=== PATIENT | female | born 1985 | race Caucasian/White ===

== ENCOUNTER → 2016-02-14 | Outpatient (CLI) | payer BC ==
--- NOTE | 2016-02-14 18:49 | REP ---
OBSTETRIC SONOGRAPHY: HISTORY: Supervision of , for anatomy. FINDINGS: Scanning through the gravid uterus demonstrates a viable single intrauterine gestation in a variable lie. motion is observed and heart rate is recorded at 153 beats per minute. A posterior right lateral placenta is seen, grade 1, without evidence of previa. Amniotic fluid is subjectively normal. Closed cervical length is 3.2 cm measured transabdominally. There is a 2.1 cm left paraovarian cyst noted. There has been appropriate interval growth. A 10.1 x 9.0 x 8.0 cm fibroid is seen at the level of and obscuring the internal cervical os. No anomaly is seen. Left and right ventricular outflow tract views are less than optimally seen due to position. The following additional anatomic structures are identified and felt to be sonographically unremarkable: cranium, choroid plexus, cavum, cerebellum and posterior fossa, face in profile, lungs, four chamber heart, diaphragm, left-sided stomach, abdominal wall cord insertion, three vessel umbilical cord, kidneys and bladder, spine, upper and lower extremities. BIOMETRY CHART: BPD 4.7 cm = 20 weeks 1 days HC 18.0 cm = 20 weeks 3 days AC 15.1 cm = 20 weeks 2 days FL 3.3 cm = 20 weeks 2 days HL 3.3 cm = 20 weeks 6 days HC/AC ratio normal 1.19. Cephalic index normal 0.71. Estimated weight 349 grams 0 pounds 12 ounces, 56th percentile for 20 weeks 1 day. IMPRESSION: Viable single intrauterine gestation at 20 weeks 3 days by today's composite criteria. Expected gestational age estimate based on prior sonography is 20 weeks 0 days, KENDALL by prior sonography is July 03, 2016. There is a large lower uterine segment fibroid 10.1 cm in greatest diameter covering the internal cervical os. Left and right ventricular outflow tract views are less than optimally seen due to position. Signed by Roberto Jang MD 02/14/2016 07:20 P
== END ==
LOC: M RAD 09:36
PROVIDERS: ATTEND Advanced Practice Midwife
DX: Z34.82 Encounter for supervision of other normal pregnancy, second trimester (principal)

== ENCOUNTER → 2016-03-06 | Outpatient (CLI) | payer BC ==
--- NOTE | 2016-03-06 11:09 | REP ---
OBSTETRIC SONOGRAPHY: HISTORY: Supervision of , followup anatomy. FINDINGS: Scanning demonstrates a viable single intrauterine gestation in a cephalic lie. motion is observed and heart rate is recorder 150 beats per minute. A posterior grade 0 placenta is seen without evidence of previa or abruption. Amniotic fluid is subjectively normal. Closed cervical length is measured at 5.4 cm view transabdominally. No extrauterine abnormalities observed. There has been appropriate interval growth. There is evidence of nuchal cord at this juncture. There is a large anterior lower uterine segment myoma measuring 9.2 x 8.8 x 9.3 cm just to the left of midline. No anomaly is seen. The following anatomic structures are identified today and felt to be sonographically unremarkable: cranium, choroid plexus, cavum, cerebellum and posterior fossa, face and profile, lungs, four-chamber heart with left and right ventricular outflow tract views, diaphragm, left-sided stomach, abdominal wall cord insertion, three-vessel umbilical cord, kidneys and bladder, spine, upper and lower extremities. Biometry Chart: BPD 5.4 cm = 22 weeks 3 days HC 20.5 cm = 22 weeks 4 days AC 18.7 cm = 23 weeks 3 days FL 4.0 cm = 22 weeks 6 days HL 3.8 cm = 23 weeks 4 days CD 2.3 cm = 21 weeks 3 days HC/AC ratio normal 1.10. Cephalic index normal 0.72. Estimated weight 562 grams, 1 pound 3 ounces, 45th percentile for 23 weeks 1 day. IMPRESSION: Viable single intrauterine gestation at 22 weeks 5 days by today's composite sonographic criteria. Expected gestational age estimate based on prior sonography is 23 weeks 0 days. KENDALL by prior sonography July 03, 2016. Nuchal cord is seen. There is a 9.3 cm fibroid to the left of midline in the lower uterine segment. anatomic survey is felt to be complete. Signed by Roberto Jang MD 03/06/2016 01:18 P
== END ==
LOC: M RAD 09:31
PROVIDERS: ATTEND Advanced Practice Midwife
DX: Z34.82 Encounter for supervision of other normal pregnancy, second trimester (principal)

== ENCOUNTER → 2016-03-27 | Outpatient (CLI) | payer BC ==
[2016-03-27 09:46] LABS: MEAN CORPUSCULAR HEMOGLOBIN 30.9 pg (27.0-33.0); MEAN CORPUSCULAR HGB CONC 34.3 g/dl (32.0-36.5); MEAN CORPUSCULAR VOLUME 89.9 fl (80.0-96.0); RED CELL DISTRIBUTION WIDTH 13.3 % (11.5-14.5); WHITE BLOOD COUNT 8.5 K/mm3 (4.0-10.0)
== END ==
LOC: M LAB 07:45
PROVIDERS: ATTEND Advanced Practice Midwife
DX: Z34.82 Encounter for supervision of other normal pregnancy, second trimester (principal)

== ENCOUNTER → 2016-04-02 | Outpatient (CLI) | payer BC | LOC: M LAB 08:03 | PROVIDERS: ATTEND Advanced Practice Midwife | DX: Z34.82 Encounter for supervision of other normal pregnancy, second trimester (principal) ==

== ENCOUNTER → 2016-06-04 | Outpatient (REF) | payer BC | LOC: M LAB REF 13:36 | PROVIDERS: ATTEND Advanced Practice Midwife | DX: Z34.83 Encounter for supervision of other normal pregnancy, third trimester (principal) ==

== ENCOUNTER → 2016-06-06 | Outpatient (CLI) | payer BC ==
--- NOTE | 2016-06-07 05:08 | REP ---
Clinical: Growth discrepancy. Comparison: 03/06/2016. Findings: Examination demonstrates a single live intrauterine in Cephalic presentation. motion is identified by technologist. Placenta is noted right laterally and grade III without evidence for placenta previa or abruption. 12.2 cm anterior left intramural fibroid extends to the lower uterine segment adjacent to the head. Amniotic fluid volume is normal. Cervix appears closed. No evidence for nuchal cord. Gestational age by LMP 36 weeks 2 day with KENDALL 07/02/2016. Gestational age by current measurements 36 weeks 0 days with KENDALL 07/04/2016. FHR equals 168 beats per minute. BPD 8.4 cm 34w0d HC 31.8 cm 35w6d AC 33.7 cm 37w5d FL 7.0 cm 36w1d HL 6.3 cm 36w2d HC/AC ratio 0.94 Estimated weight 2989 grams (57th percentile). Amniotic fluid index equals 13.0 (7.6 - 24.8) Umbilical cord SD ratio equals 2.26 (1.88 - 2.88). Impression: 1. Large 12 cm anterior fibroid extends into the lower uterine segment at the level of the head. 2. Single live intrauterine in cephalic presentation demonstrating appropriate interval growth. Estimated weight normal. Amniotic fluid index normal. Signed by Freddy Mahoney MD 06/07/2016 04:59 A
== END ==
LOC: M RAD 09:10
PROVIDERS: ATTEND Advanced Practice Midwife
DX: O24.410 Gestational diabetes mellitus in pregnancy, diet controlled (principal); Z3A.00 Weeks of gestation of pregnancy not specified

== ENCOUNTER 2016-06-27 07:37 | Inpatient (IN) | payer BC ==
[2016-06-27] VITALS (13 sets, daily range): BP systolic 115–159; BP diastolic 57–92
[~2016-06-27] VITALS: Ht 170.2 cm; Wt 88.0 kg
[2016-06-27] MEDS ORDERED: PRE-TAB3 PO (08:04)
[2016-06-27] MEDS ORDERED: ASPI1TAB24 PO (08:04)
[2016-06-27 09:35] LABS: MEAN CORPUSCULAR HEMOGLOBIN 31.6 pg (27.0-33.0); MEAN CORPUSCULAR HGB CONC 34.4 g/dl (32.0-36.5); MEAN CORPUSCULAR VOLUME 91.7 fl (80.0-96.0); RED CELL DISTRIBUTION WIDTH 14.5 % (11.5-14.5); WHITE BLOOD COUNT 6.6 K/mm3 (4.0-10.0)
[2016-06-27] MEDS: miSOPROStol 50 MCG 1/2 TAB (S0191) PO SCH ×2 (10:08→14:12)
[2016-06-27] MEDS ORDERED: OXYTOCIN DRIP 30 UNITS in APPROPRIATE DILUENT 1 EA IV SCH (20:00)
[2016-06-27] MEDS: LR 1,000 ML IV SCH (20:09)
--- NOTE | 2016-06-27 22:08 | HPE ---
DATE OF ADMISSION: 06/27/2016 REASON FOR ADMISSION: Induction of labor for gestational diabetes. HISTORY OF PRESENT ILLNESS: Mrs. Spann is a 31-year-old, 3, para 0, who presents at 39 weeks 2 days estimated gestational age by her last menstrual period and confirmed by a first trimester ultrasound for induction of labor secondary to gestational diabetes. Her course is remarkable for A1 gestational diabetes that has been well controlled on diet. Her course is also remarkable for an approximately 10 cm anterior lower uterine segment fibroid. course has otherwise been unremarkable. She initiated care in her first trimester and it has been appropriate throughout. PAST MEDICAL HISTORY: History of depression. PAST SURGICAL HISTORY: She has had tonsillectomy. PAST OBSTETRICAL HISTORY: She is a 3, para 0, she has had two first trimester miscarriages. MEDICATIONS: Includes: - vitamins ALLERGIES: She has no known drug allergies. SOCIAL HISTORY: She lives at home with her . Denies any alcohol, tobacco, or drug use during her . PHYSICAL EXAMINATION: Her vital signs are stable. She is afebrile. She has a category 1 heart rate tracing. Her general appearance is well-appearing, in no acute distress. Her lungs are clear to auscultation bilaterally. Cardiovascular: Heart regular rate and rhythm. Her abdomen is gravid, nontender. Estimated weight (EFW) 3300 grams. Cervical exam: She was 1 cm dilated, 50% effaced, -2 station. LABORATORY DATA: Her labs: Her blood type is B positive, antibody screen is negative, Rubella is immune, RPR is nonreactive, hepatitis surface antigen is negative, HIV is negative, hepatitis C is nonreactive, chlamydia and gonorrhea screens are negative. She had an elevated 1-hour Glucola and also abnormal glucose tolerance test. She is group B Streptococcus (GBS) negative. ASSESSMENT: 1. Mrs. Spann is a 31-year-old, 3, para 0, who presents at 39 weeks 2 days estimated gestational age for induction of labor. 2. Gestational diabetes. 3. Reassuring status. PLAN: 1. Admit to labor and delivery, complete blood count (CBC), rapid plasma reagin (RPR), type and screen. 2. Patient has been thoroughly counseled in regards to induction of labor. I have discussed medication as well as the procedures performed for induction of labor. I have also consented her for emergency surgery, blood products, and anesthesia, and she desires to proceed with admission. 3. Will initiate her induction of labor with 50 mcg of oral misoprostol.
[2016-06-28] VITALS (35 sets, daily range): BP systolic 99–170; BP diastolic 54–97
[2016-06-28] MEDS ORDERED: FENTANYL 2MCG/ML ROPIVACAINE 0.2% IN 0.9% NACL 200ML IVBAG As Ordered ONE (00:15)
[2016-06-28] MEDS ORDERED: NALOXONE INJ 0.4 MG/1 ML VIAL (J2310) IV PRN (01:10)
[2016-06-28] MEDS ORDERED: ePHEDrine SULFATE 25 MG/5 ML(5MG/ML) SYRINGE IV PRN (01:10)
[2016-06-28] MEDS ORDERED: EPIDURAL COMMENT XX SCH (01:10)
[2016-06-28] MEDS ORDERED: EPIDURAL/PCA KEYS XX PRN (01:10)
[2016-06-28] MEDS ORDERED: FENTANYL/ROPIVACAINE/NACL BAG 200 ML EPIDURAL SCH (01:10)
[2016-06-28] MEDS ORDERED: LACTATED RINGER'S 1000 ML IV PRN (01:10)
[2016-06-28] MEDS ORDERED: ONDANSETRON 4MG/2ML VIAL (J2405) IV PRN ×2 (01:10→14:00)
[2016-06-28] MEDS ORDERED: diphenhydrAMINE INJ 50MG/ML VIAL (J1200) IV PRN (01:10)
[2016-06-28] MEDS ORDERED: REFRIGERATOR IV KEYS XX PRN (01:10)
[2016-06-28] MEDS: LR 1,000 ML IV SCH (11:37)
[2016-06-28] MEDS ORDERED: DOCUSATE SODIUM 100 MG CAP PO PRN (14:00)
[2016-06-28] MEDS ORDERED: METHYLERGONOVINE MALEATE 0.2 MG TAB PO PRN (14:00)
[2016-06-28] MEDS ORDERED: OXYTOCIN DRIP 30 UNITS in APPROPRIATE DILUENT 1 EA IV ONE (14:00)
[2016-06-28] MEDS ORDERED: DIBUCAINE 1% OINTMENT 30GM TOP PRN (14:00)
[2016-06-28] MEDS ORDERED: LIDOCAINE 1% MDV INJ 50 ML VIAL INFIL ONE (14:00)
[2016-06-28] MEDS ORDERED: MEASLES,MUMPS,RUBELLA VACCINE INJ (MMR-II) (90707) SC SCH (14:00)
[2016-06-28] MEDS ORDERED: RHOGAM 300 MCG (1500 IU) INJ (J2790) IM SCH (14:00)
[2016-06-28] MEDS ORDERED: ACETAMINOPHEN 500 MG TAB PO PRN (14:00)
[2016-06-28] MEDS: IBUPROFEN 800 MG TAB PO PRN (15:38)
--- NOTE | 2016-06-28 21:41 | DN ---
DATE OF DELIVERY: 06/28/2016 PREDELIVERY DIAGNOSIS: 39 weeks. Gestational diabetes. POSTDELIVERY DIAGNOSIS: Delivered. PROCEDURE: Spontaneous vaginal delivery. SALES ORDER SPECIALIST: Maxim Stovall MD ANESTHESIA: Epidural ESTIMATED BLOOD LOSS: 300 ml FINDINGS: 3190 gram female , Apgars 9 and 9. DELIVERY SUMMARY: After 3 hour second stage, the patient had spontaneous delivery of a 3190 gram female, Apgars 9 and 9 from the left occiput posterior position. There was no nuchal cord. The shoulders delivered spontaneously with ease. The infant cried spontaneously and was handed to the mother. The cord was doubly clamped and cut. Placenta delivered spontaneously and appeared to be intact. The patient received IV pitocin immediately after delivery of the placenta. A second degree perineal laceration was repaired with #2-0 chromic in the usual fashion. Sponge and needle counts were correct.
[2016-06-29 06:07] VITALS: BP 125/73
[2016-06-29] MEDS: IBUPROFEN 800 MG TAB PO PRN ×3 (06:22→21:17)
[2016-06-29] MEDS: PRENATAL VITAMIN TAB PO SCH (07:47)
[2016-06-29] MEDS ORDERED: ADACEL/BOOSTRIX VACCINE (DIPHTH/PERTUSS/ACELL/TETANUS)0.5ML SYR (90715) IM ONE (09:00)
[2016-06-29 18:00] VITALS: BP 149/66
[2016-06-30 05:49] VITALS: BP 125/73
[2016-06-30] MEDS: PRENATAL VITAMIN TAB PO SCH (08:04)
[2016-06-30] MEDS: IBUPROFEN 800 MG TAB PO PRN (08:05)
[2016-06-30] MEDS ORDERED: PRE-TAB3 PO (08:36)
[2016-06-30] MEDS ORDERED: TYLE325T5 PO (08:38)
[2016-06-30] MEDS ORDERED: MOTR200T44 PO (08:39)
== END 2016-06-30 12:00 | disposition home or self-care (01) | DRG 560 ==
LOC: M LDI 07:37 → M ED INP 13:44 → M LDI 13:48 → M OBS 06-28 15:07
PROVIDERS: ADMIT Obstetrics & Gynecology; ATTEND Obstetrics & Gynecology
PROC: 3E0DXGC Introduction of Other Therapeutic Substance into Mouth and Pharynx, External Approach (ICD-10-PCS; 2016-06-27)
PROC: 10E0XZZ Delivery of Products of Conception, External Approach (ICD-10-PCS; principal; 2016-06-28)
PROC: 0KQM0ZZ Repair Perineum Muscle, Open Approach (ICD-10-PCS; 2016-06-28)
PROC: 10907ZC Drainage of Amniotic Fluid, Therapeutic from Products of Conception, Via Natural or Artificial Opening (ICD-10-PCS; 2016-06-28)
DX: O24.420 Gestational diabetes mellitus in childbirth, diet controlled (principal); D25.9 Leiomyoma of uterus, unspecified; O34.13 Maternal care for benign tumor of corpus uteri, third trimester; Z37.0 Single live birth; Z3A.39 39 weeks gestation of pregnancy; Z79.899 Other long term (current) drug therapy; O70.1 Second degree perineal laceration during delivery

== ENCOUNTER → 2016-07-09 | Outpatient (REF) | payer BC ==
[~2016-07-09] MED LIST: ASPI1TAB24 PO; MOTR200T44 PO; PRE-TAB3 PO; TYLE325T5 PO
== END ==
LOC: M LAB REF 12:08
PROVIDERS: ATTEND Physician Assistant
DX: J02.9 Acute pharyngitis, unspecified (principal)

== ENCOUNTER 2016-09-16 22:45 | Emergency (ER) | payer BC ==
[~2016-09-16] VITALS: Ht 170.2 cm; Wt 84.0 kg
[~2016-09-16 22:45] MED LIST changes: +ASPI-161 PO; -ASPI1TAB24 PO
[2016-09-16 22:46] VITALS: BP 165/106
[2016-09-16] MEDS ORDERED: percocet PO (22:56)
[2016-09-17] MEDS ORDERED: MORPHINE 10 MG/ML 1ML VIAL IM ONE (02:15)
== END 2016-09-17 02:18 | disposition home or self-care (01) ==
LOC: M ED 22:45
DX: K08.89 Other specified disorders of teeth and supporting structures (principal)

== ENCOUNTER → 2017-01-29 | Outpatient (REF) | payer BC, SELFPAY ==
[~2017-01-29] MED LIST changes: +percocet PO
== END ==
LOC: M LAB REF 13:47
PROVIDERS: ATTEND Physician Assistant
DX: J02.9 Acute pharyngitis, unspecified (principal)

== ENCOUNTER → 2018-01-16 | Outpatient (CLI) | payer BC ==
[2018-01-16 17:23] LABS: HCG, SERUM QUANTITATIVE 2 MIU/ML
== END ==
LOC: M LAB 16:44
DX: N91.2 Amenorrhea, unspecified (principal)
CPT/HCPCS: 84702

== ENCOUNTER → 2018-01-18 | Outpatient (CLI) | payer BC, OTHER ==
[2018-01-18 14:23] LABS: HCG, SERUM QUANTITATIVE < 1.0 MIU/ML
== END ==
LOC: M SMT 11-11 09:40
DX: N91.2 Amenorrhea, unspecified (principal)
CPT/HCPCS: 84702

== ENCOUNTER → 2018-06-05 | Outpatient (REF) | payer BC ==
[2018-06-07 15:08] LABS: HPV HYBRID CAPTURE II Negative (Negative)
== END ==
LOC: M LAB REF 17:47
PROVIDERS: ATTEND Obstetrics & Gynecology
DX: Z12.4 Encounter for screening for malignant neoplasm of cervix (principal)
CPT/HCPCS: 87624; G0123

== ENCOUNTER → 2018-06-06 | Outpatient (CLI) | payer BC ==
--- NOTE | 2018-06-07 07:44 | REP ---
NON-OB PELVIC ULTRASOUND: HISTORY: Uterine leiomyoma. The uterus measures 12 cm in transverse x 11.2 cm in AP x 16.4 cm in cephalocaudal dimensions. The endometrium measures 5.6 cm. The uterus is enlarged and heterogeneous and echogenicity. Multiple fibroids are present. The largest on the right measures 7.2 cm in maximum dimension. The largest on the left measures 6.4 cm in maximum dimension. The right ovary measures 4.1 x 1.8 x 4.3 cm. The left ovary measures 3.6 x 1.4 x 4.2 cm. There is no fluid in the cul-de-sac. There are no filling defects in the urinary bladder. IMPRESSION: Enlarged fibroid uterus. Electronically Signed by Maxim Gregory MD 06/07/2018 07:59 A
== END ==
LOC: M RAD 17:13
PROVIDERS: ATTEND Obstetrics & Gynecology
DX: D25.2 Subserosal leiomyoma of uterus (principal)

== ENCOUNTER → 2018-07-30 | Outpatient (CLI) | payer BC | LOC: M LAB 08:06 | PROVIDERS: ATTEND Obstetrics & Gynecology | DX: N92.0 Excessive and frequent menstruation with regular cycle (principal) ==

== ENCOUNTER → 2018-08-06 | Outpatient (CLI) | payer BC | LOC: M WUC 17:39 | PROVIDERS: ATTEND Obstetrics & Gynecology | DX: Z32.01 Encounter for pregnancy test, result positive (principal) ==

== ENCOUNTER → 2018-08-08 | Outpatient (CLI) | payer BC | LOC: M LAB 07:58 | PROVIDERS: ATTEND Obstetrics & Gynecology | DX: Z32.01 Encounter for pregnancy test, result positive (principal); Z3A.00 Weeks of gestation of pregnancy not specified ==

== ENCOUNTER → 2018-10-17 | Outpatient (REF) | payer BC ==
[~2018-10-17] MED LIST changes: +ACET-897 PO; +IBUP200C28 PO; +MULTTAB20 PO
== END ==
LOC: M LAB REF 19:24
PROVIDERS: ATTEND Physician Assistant Medical
DX: R50.9 Fever, unspecified (principal)

== ENCOUNTER → 2018-10-17 | Outpatient (CLI) | payer BC ==
--- NOTE | 2018-10-17 15:08 | REP ---
Clinical: Fever . Comparison: None . Technique: PA and lateral. Findings: The mediastinum and cardiac silhouette are normal. The lung armstrong are clear and without acute consolidation, effusion, or pneumothorax. The skeletal structures are intact and normal. Impression: 1. No acute cardiopulmonary process. Electronically Signed by Freddy Mahoney MD 10/17/2018 03:00 P
== END ==
LOC: M ADAMS 14:43
PROVIDERS: ATTEND Physician Assistant Medical
DX: R50.9 Fever, unspecified (principal)

== ENCOUNTER → 2018-10-17 | Outpatient (REF) | payer BC ==
[2018-10-17 20:49] LABS: HEMATOCRIT 35.9 % (36.0-47.0); MEAN CORPUSCULAR HEMOGLOBIN 29.7 pg (27.0-33.0); MEAN CORPUSCULAR HGB CONC 33.4 g/dl (32.0-36.5); MEAN CORPUSCULAR VOLUME 88.9 fl (80.0-96.0); PLATELET COUNT, AUTOMATED 163 10^3/uL (150-450); RED BLOOD COUNT 4.04 10^6/uL (4.00-5.40)
[2018-10-17 21:34] LABS: WHITE BLOOD COUNT 1.3 10^3/uL (4.0-10.0)
[2018-10-17 21:45] LABS: ATYPICAL LYMPH 1 % (0-5); BASOPHILS 2 % (0-1); LYMPHOCYTES 41 % (16-44); MONOCYTES 8 % (0-5); NEUTROPHILS 24 % (28-66); PLATELET ESTIMATE NORMAL (NORMAL)
== END ==
LOC: M LABDRWAD 19:15
PROVIDERS: ATTEND Physician Assistant Medical
DX: R50.9 Fever, unspecified (principal)

== ENCOUNTER 2018-10-18 10:30 | Inpatient (IN) | payer BC ==
[~2018-10-18] VITALS: Ht 170.2 cm; Wt 84.6 kg
[~2018-10-18 10:30] MED LIST changes: -ACET-897 PO; -IBUP200C28 PO; +MAALOX 30 ML SUSP *UDC PO PRN; -MULTTAB20 PO
[2018-10-18 11:19] LABS: HEMATOCRIT 38.6 % (36.0-47.0); HEMOGLOBIN 12.9 g/dl (12.0-15.5); MEAN CORPUSCULAR HEMOGLOBIN 29.2 pg (27.0-33.0); MEAN CORPUSCULAR HGB CONC 33.4 g/dl (32.0-36.5); MEAN CORPUSCULAR VOLUME 87.3 fl (80.0-96.0); PLATELET COUNT, AUTOMATED 161 10^3/uL (150-450); RED BLOOD COUNT 4.42 10^6/uL (4.00-5.40)
[2018-10-18 11:25] LABS: WHITE BLOOD COUNT 1.2 10^3/uL (4.0-10.0)
[2018-10-18 11:49] LABS: MONO REFLEX EBV COMP NEGATIVE (NEGATIVE)
[2018-10-18 11:53] LABS: INFLUENZA A AMPLIFICATION NEGATIVE (NEGATIVE); INFLUENZA B AMPLIFICATION NEGATIVE (NEGATIVE)
[2018-10-18 11:54] LABS: ANISOCYTOSIS 1+; ATYPICAL LYMPH 7 % (0-5); BASOPHILS 2 % (0-1); LYMPHOCYTES 39 % (16-44); MONOCYTES 9 % (0-5); NEUTROPHILS 38 % (28-66); PLATELET ESTIMATE NORMAL (NORMAL)
[2018-10-18] MEDS ORDERED: ACETAMINOPHEN 500 MG TAB PO ONE (12:00)
[2018-10-18] MEDS ORDERED: NS 1,000 ML IV ONE (12:00)
[2018-10-18 12:07] LABS: ALT/SGPT 38 U/L (12-78); BILIRUBIN,TOTAL 0.4 MG/DL (0.2-1.0); BLOOD UREA NITROGEN 7 MG/DL (7-18); CALCIUM LEVEL 9.3 MG/DL (8.5-10.1); CARBON DIOXIDE LEVEL 26 MEQ/L (21-32); CHLORIDE LEVEL 105 MEQ/L (98-107); GLOMERULAR FILTRATION RATE > 60.0 (>60); GLUCOSE, FASTING 87 MG/DL (70-100); POTASSIUM SERUM 4.3 MEQ/L (3.5-5.1); SODIUM LEVEL 139 MEQ/L (136-145)
[2018-10-18 12:08] LABS: ALBUMIN 3.7 GM/DL (3.2-5.2); BILIRUBIN,DIRECT < 0.1 MG/DL (0.0-0.2); TOTAL PROTEIN 7.5 GM/DL (6.4-8.2)
[2018-10-18] MEDS ORDERED: MULTTAB20 PO (13:21)
[2018-10-18] MEDS ORDERED: IBUP200C28 PO (13:21)
[2018-10-18] MEDS ORDERED: ACET-897 PO (13:21)
[2018-10-18 13:53] LABS: C REACTIVE PROTEIN QUANTITATIV 4.67 MG/DL (0.00-0.30); LDH LACTATE DEHYDROGENASE 293 U/L (84-246); RHEUMATOID FACTOR QUANT < 10.0 IU/ML (<15.0); TOTAL PROTEIN 6.9 GM/DL (6.4-8.2)
[2018-10-18] MEDS ORDERED: IBUPROFEN 400 MG TAB PO PRN (16:15)
--- NOTE | 2018-10-18 17:08 | HPEPDOC ---
General Date of Admission Oct 18, 2018 at 16:08 Date of Service: Oct 18, 2018 Chief Complaint The patient is a 33-year-old female admitted with a reason for visit of Febrile Neutropenia. History of Present Illness 33f with no history, who presents with fever. Pt reports she started feeling ill about five days ago. She has had low energy and low appetite. When she spikes a fever she has body aches particularly in her joints, as well as a headache. She has had no n/v/d, no urinary symptoms, no cough, no neck stiffness, no rash. She denies recent travel, tick bites, animal exposures. She has not had any sick contacts, however she does have family visiting from [place], one of whom now seems to be sick as well. She was evaluated outpatient and was found to be neutropenic, prompting referral to the hospital. A full ROS was performed and negative except as above. Home Medications Scheduled No122/Iron/Folic Acid ( Multi Tablet) 1 Each Tablet, 1 TAB PO DAILY, (Reported) Scheduled PRN Acetaminophen (Tylenol Extra Strength) 500 Mg Tablet, 1,000 MG PO TID PRN for PAIN, (Reported) Ibuprofen (Ibuprofen) 200 Mg Capsule, 400 MG PO QID PRN for PAIN, (Reported) Allergies Coded Allergies: No Known Allergies (Unverified , 06/27/16) Family History Significant Family History: Cancer Social History * Smoker: Denies Alcohol: Denies Drugs: denies Recent Travel/Sick Contacts: Denies: Recent travel, Recent sick contacts A-FIB/CHADSVASC A-FIB History Current/History of A-Fib/PAF?: No Current PO Anticoag Therapy: No Age/Risk Factor Scoring CHADSVASC: CHADSVASC Response (Comments) Value Age Risk Factor Age < 65 years old 0 Gender Risk Factor Female 1 Hx of CHF No 0 Hx of HTN No 0 Hx of Stroke/TIA/or VTE No 0 Hx of Diabetes No 0 Hx of Vascular Disease No 0 Total 1 Treatment Treatment ordered: NONE Reason Anticoagulant not given: Not indicated/Nugux2cupd Physical Examination General Exam: Positive: Alert, No Acute Distress Eye Exam: Positive: PERRLA, Conjunctiva & lids normal, EOMI; Negative: Sclera icteric ENT Exam: Positive: Atraumatic, Mucous membr. moist/pink, Pharynx Normal Neck Exam: Positive: Supple; Negative: JVD, thyromegaly Chest Exam: Positive: Clear to auscultation, Normal air movement Heart Exam: Positive: Rate Normal, Regular Rhythm, Normal S1, Normal S2; Negative: Murmurs, Rubs Telemetry: Positive: No significant arrhythmia Abdomen Exam: Positive: Normal bowel sounds, Soft; Negative: Tenderness, Hepatospenomegaly Extremity Exam: Positive: Normal pulses; Negative: Clubbing, Cyanosis, Edema Skin Exam: Positive: Nl turgor and temperature; Negative: Breakdown, Lesion Neuro Exam: Positive: Normal Gait, Normal Speech, Cranial Nerves 3-12 NL, Reflexes 2+ Psych Exam: Positive: Mental status NL, Mood NL, Oriented x 3 Vital Signs Vital Signs Date Time Temp Pulse Resp B/P (MAP) Pulse Ox O2 Delivery O2 Flow Rate FiO2 10/18/18 14:26 99.6 86 16 131/64 (86) 97 Room Air Laboratory Data Labs 24H Laboratory Tests 2 10/18/18 10:48: White Blood Count 1.2L, Red Blood Count 4.42, Hemoglobin 12.9, Hematocrit 38.6, Mean Corpuscular Volume 87.3, Mean Corpuscular Hemoglobin 29.2, Mean Corpuscular Hemoglobin Concent 33.4, Red Cell Distribution Width 12.3, Platelet Count 161, Neutrophils # (Auto) , Nucleated Red Blood Cells % (auto) 0.0, Neutrophils 38, Band Neutrophils 5, Lymphocytes (Manual) 39, Monocytes (Manual) 9H, Basophils (Manual) 2H, Atypical Lymphocytes 7H, Platelet Estimate NORMAL, Anisocytosis 1+, Erythrocyte Sedimentation Rate 37H, Anion Gap 8, Glomerular Filtration Rate > 60.0, Calcium Level 9.3, Aspartate Amino Transf (AST/SGOT) 50H, Alanine Ami notransferase (ALT/SGPT) 38, Alkaline Phosphatase 75, Total Bilirubin 0.4, Direct Bilirubin < 0.1, Total Protein 7.5, Albumin 3.7, Albumin/Globulin Ratio 0.97L, Monoscreen NEGATIVE, Influenza Type A (RT-PCR) NEGATIVE, Influenza Type B (RT-PCR) NEGATIVE 10/18/18 13:05: Lactate Dehydrogenase 293H, C-Reactive Protein, Quantitative 4.67H, Total Protein (PEP) 6.9, Rheumatoid Factor < 10.0 CBC/BMP Laboratory Tests 10/18/18 10:48 Red Blood Count 4.42, Mean Corpuscular Volume 87.3, Mean Corpuscular Hemoglobin 29.2, Mean Corpuscular Hemoglobin Concent 33.4, Red Cell Distribution Width 12.3, Neutrophils # (Auto) Microbiology Microbiology 10/18/18 Blood Culture, Received Pending 10/18/18 Blood Culture, Received Pending 10/18/18 Blood Culture, Received Pending Assessment/Plan 33f p/w arthralgias, neutropenia and fevers suspect a viral infection flu and monospot are negative given moderate neutropenia and persistent fevers will cover with cefepime panculture coby and anca pending check hiv, hepatitis, cmv, respiratory viral panel hematology consulted Plan / VTE VTE Prophylaxis Ordered?: No VTE Exclusion Mechanical Proph: Low Risk for VTE VTE Exclusion Pharmacological: At Low Risk for VTE DELFINO KOEHLER MD Oct 18, 2018 17:08
[2018-10-18 17:50] VITALS: BP 125/76
[2018-10-18] MEDS: CEFEPIME HCL 2 GM in D5W MINI-BAG PLUS 50 ML IV SCH (18:49)
[2018-10-18 22:00] VITALS: BP 120/75
[2018-10-19] MEDS: CEFEPIME HCL 2 GM in D5W MINI-BAG PLUS 50 ML IV SCH ×3 (01:04→16:12)
[2018-10-19 06:00] VITALS: BP 115/73
[2018-10-19 06:55] LABS: HEMATOCRIT 34.7 % (36.0-47.0); HEMOGLOBIN 11.6 g/dl (12.0-15.5); MEAN CORPUSCULAR HEMOGLOBIN 29.2 pg (27.0-33.0); MEAN CORPUSCULAR HGB CONC 33.4 g/dl (32.0-36.5); MEAN CORPUSCULAR VOLUME 87.4 fl (80.0-96.0); PLATELET COUNT, AUTOMATED 152 10^3/uL (150-450); RED BLOOD COUNT 3.97 10^6/uL (4.00-5.40)
[2018-10-19 07:01] LABS: WHITE BLOOD COUNT 1.3 10^3/uL (4.0-10.0)
[2018-10-19 07:15] LABS: ALBUMIN 3.3 GM/DL (3.2-5.2); ALT/SGPT 33 U/L (12-78); BILIRUBIN,TOTAL 0.3 MG/DL (0.2-1.0); BLOOD UREA NITROGEN 7 MG/DL (7-18); CALCIUM LEVEL 8.7 MG/DL (8.5-10.1); CARBON DIOXIDE LEVEL 24 MEQ/L (21-32); CHLORIDE LEVEL 108 MEQ/L (98-107); CREATININE FOR GFR 0.73 MG/DL (0.55-1.30); GLOMERULAR FILTRATION RATE > 60.0 (>60); GLUCOSE, FASTING 97 MG/DL (70-100); SODIUM LEVEL 140 MEQ/L (136-145); TOTAL PROTEIN 6.5 GM/DL (6.4-8.2)
[2018-10-19 07:21] LABS: HEMOGLOBIN A1c 5.6 %
[2018-10-19 07:57] LABS: ATYPICAL LYMPH 6 % (0-5); BASOPHILS 2 % (0-1); LYMPHOCYTES 45 % (16-44); MONOCYTES 15 % (0-5); NEUTROPHILS 23 % (28-66); PLATELET ESTIMATE NORMAL (NORMAL)
[2018-10-19 07:58] LABS: ANISOCYTOSIS 1+
[2018-10-19] MEDS: ACETAMINOPHEN TAB 650MG DOSE (2X325MG) PO PRN ×2 (09:41→18:19)
--- NOTE | 2018-10-19 11:04 | IPNPDOC ---
Subjective Date Seen The patient was seen on 10/19/18. Subjective Chief Complaint/HPI Patient is very upset. She is crying in the bed, but she has no other new complaints except generalized lethargy and body aches, at bedside General: Denies: ROS Unobtainable, Chills, Night Sweats, Fatigue, Malaise, N ormal Appetite, Other Symptoms Constitutional: Denies: Chills, Fever, Malaise, Night Sweats, Weakness, Fatigue, Weight Loss, Lethargy, Other Eyes: Denies: Pain, Vision change, Conjunctivae inflammation, Eyelid inflammation, Redness, Other ENT: Denies: Head Aches, Ear Pain, Dysphagia, Sinus Congestion, Post Nasal Drip, Sore Throat, Epistaxis, Other Symptoms Skin: Denies: Rash, Lesions, Jaundice, Bruising, Itching, Dry, Breakdown, Nail Changes, Other Pulmonary: Denies: Dyspnea, Cough, Pleuritic Chest Pain, Other Symptoms Cardiovascular: Denies: Chest Pain, Palpitations, Orthopnea, Paroxysmal Noc. Dyspnea, Edema, Lt Headedness, Other Symptoms Gastrointestinal: Denies: Nausea, Vomiting, Abdominal Pain, Diarrhea, Constipation, Melena, Hematochezia, Other Symptoms Musculoskeletal: Denies: Neck Pain, Back Pain, Shoulder Pain, Arm Pain, Hand Pain, Leg Pain, Foot Pain, Joint Pain, Muscle Pain, Spasms, Other Symptoms Neurological: Denies: Weakness, Numbness, Incoordination, Change in speech, Confusion, Seizures, Other Symptoms Objective Physical Examination General Exam: Positive: No Acute Distress Eye Exam: Positive: Sclera icteric Neck Exam: Positive: Supple Chest Exam: Positive: Clear to auscultation, Normal air movement Heart Exam: Positive: Rate Normal, Regular Rhythm, Normal S1, Normal S2 Abdomen Exam: Positive: Normal bowel sounds, Soft Extremity Exam: Positive: Normal pulses Skin Exam: Positive: Nl turgor and temperature Psych Exam: Positive: Anxiety, Oriented x 3 Assessment /Plan Problems (1) Febrile neutropenia Status: Acute Problem Text: Patient neutropenia, most likely secondary to viral infection Influenza and Monospot tests are negative so far Hepatitis, HIV, CMV, and respiratory syncytial virus are still pending Rheumatology workup also was ordered Patient has been started on cefepime as a prophylaxis Patient in reverse isolation We'll continue monitoring her CBC Hematology consult was called by Dr. Bazan Plan/VTE VTE Prophylaxis Ordered?: No VTE Exclusion Mechanical Proph: Low Risk for VTE VTE Exclusion Pharmacological: At Low Risk for VTE VS, I&O, 24H, Fishbone Vital Signs/I&O Vital Signs Date Time Temp Pulse Resp B/P (MAP) Pulse Ox O2 Delivery O2 Flow Rate FiO2 10/19/18 06:00 99.1 81 16 115/73 (87) 98 10/18/18 17:01 Room Air I&O- Last 24 Hours up to 6 AM 10/19/18 05:59 Intake Total 2020 ml Balance 2020 ml Laboratory Data 24H LABS Laboratory Tests 2 10/18/18 13:05: Lactate Dehydrogenase 293H, C-Reactive Protein, Quantitative 4.67H, Total Protein (PEP) 6.9, Rheumatoid Factor < 10.0 10/18/18 20:44: Urine Color STRAW, Urine Appearance CLEAR, Urine pH 8.0, Urine Specific [place] 1.005, Urine Protein NEGATIVE, Urine Glucose (UA) NEGATIVE, Urine Ketones NEGATIVE, Urine Blood NEGATIVE, Urine Nitrite NEGATIVE, Urine Bilirubin NEGATIVE, Urine Urobilinogen 0.2, Urine Leukocyte Esterase NEGATIVE, Urine WBC (Auto) 0, Urine RBC (Auto) 1, Urine Hyaline Casts (Auto) 0, Urine Bacteria (Auto) NEGATIVE, Urine Squamous Epithelial Cells 0, Urine Sperm (Auto) 10/19/18 06:33: White Blood Count 1.3L, Red Blood Count 3.97L, Hemoglobin 11.6L, Hematocrit 3 4.7L, Mean Corpuscular Volume 87.4, Mean Corpuscular Hemoglobin 29.2, Mean Corpuscular Hemoglobin Concent 33.4, Red Cell Distribution Width 12.2, Platelet Count 152, Neutrophils # (Auto) , Nucleated Red Blood Cells % (auto) 0.0, Neutrophils 23L, Band Neutrophils 9, Lymphocytes (Manual) 45H, Monocytes (Manual) 15H, Basophils (Manual) 2H, Differential Slide Review Report, Atypical Lymphocytes 6H, Platelet Estimate NORMAL, Anisocytosis 1+, Macrocytosis , Peripheral Blood Smear Path Consult PERIPHERAL SMEAR, Anion Gap 8, Glomerular Filtration Rate > 60.0, Estimated Mean Plasma Glucose 114H, Hemoglobin A1c 5.6, Blood Urea Nitrogen 7, Creatinine 0.73, Sodium Level 140, Potassium Level 4.0, Chloride Level 108H, Carbon Dioxide Level 24, Calcium Level 8.7, Aspartate Amino Transf (AST/SGOT) 33, Alanine Aminotransferase (ALT/SGPT) 33, Alkaline Phosphatase 71, Total Bilirubin 0.3, Total Protein 6.5, Albumin 3.3, Albumin/Globulin Ratio 1.03 CBC/BMP Laboratory Tests 10/19/18 06:33 Red Blood Count 3.97 L, Mean Corpuscular Volume 87.4, Mean Corpuscular Hemoglobin 29.2, Mean Corpuscular Hemoglobin Concent 33.4, Red Cell Distribution Width 12.2, Neutrophils # (Auto) , Calcium Level 8.7, Aspartate Amino Transf (AST/SGOT) 33, Alanine Aminotransferase (ALT/SGPT) 33, Alkaline Phosphatase 71, Total Bilirubin 0.3, Total Protein 6.5, Albumin 3.3 Microbiology Microbiology 10/18/18 Blood Culture, Received Pending 10/18/18 Blood Culture, Received Pending 10/18/18 Blood Culture, Received Pending 10/18/18 Respiratory Virus Panel (PCR) (JON) - Final, Complete SEAN HAMILTON MD Oct 19, 2018 11:04
--- NOTE | 2018-10-19 14:50 | CR.PDOC ---
General Date of Consultation: Oct 19, 2018 Consultation REASON FOR CONSULTATION/CHIEF COMPLAINT: Patient started with malaise and fever @ 3-4 days ago . She has no known exposure to ill family or friends and has not eaten out . No diarrhea now on antibiotics for @ 24 hours + with no fever , no skin rash no nause aor emesis no change in stool , has large uterine fibroids , has irregular menses , noted a recent " chemical " subsequent results are negative [facility] insurance claims representative testing in office . is well Recent visit from [facility] all are well physically HISTORY OF PRESENT ILLNESS: . ALLERGIES: Please see below. HOME MEDICATIONS: none PAST MEDICAL HISTORY: 1. [ ]. 2. uterine fibroids . Current Medications Medications (Trade) Dose Ordered Sig/Yared Route PRN Reason Start Time Stop Time Status Last Admin Dose Admin Acetaminophen (Tylenol Tab) 650 mg Q6HP PRN PO PAIN / FEVER 10/18/18 16:15 10/19/18 09:41 Al Hydrox/Mg Hydrox/Simethicone (Mylanta) 30 ml DAILY PRN PO DYSPEPSIA 10/18/18 09:00 Cefepime HCl 2 gm/ Dextrose 50 ml @ 100 mls/hr Q8H IV 10/18/18 17:00 10/19/18 08:39 Home Med (Med Rec Complete!) ASDIRECTED XX 10/18/18 13:30 10/18/18 13:30 DC Ibuprofen (Advil) 400 mg Q6HP PRN PO PAIN OR FEVER 10/18/18 16:15 FAMILY HISTORY: F non contributory SOCIAL HISTORY: Marital status and/or living arrangements: Children: Employment: Tobacco use: ETOH: Illicit drug use: IV drug use: Other relevant social factors: REVIEW OF SYSTEMS: CONSTITUTIONAL: + myalgias . HEENT: [ wears glasses no changes ]. CARDIOVASCULAR: [no CP ]. RESPIRATORY: [no cough SOB ]. GENITOURINARY: [no dysuria ]. MUSCULOSKELETAL: [+++ myaglais ]. GASTROINTESTINAL: [negsative ]. SKIN: . NEUROLOGICAL: [headache on [presentation non ]. PSYCHIATRIC: .e now ENDOCRINE: [ see HPI ]. HEMATOLOGIC/LYMPHATIC: [no bruising ]. ALLERGIC/IMMUNOLOGIC: . PHYSICAL EXAMINATION: VITAL SIGNS: Please see below. GENERAL APPEARANCE: . HEENT: [NC AT perrl ]. RESPIRATORY: no rales rhonci ro wheezes . CARDIOVASCULAR: s1 s2 appreciated. ABDOMEN: palpale pelvic mass uterine enlargment appreciated no palpable spleen . EXTREMITIES: no edema . NEUROLOGICAL: cranial nerves 2-12 intact . PSYCHIATRIC: [intact ]. Skin no rashes or petechiae noted LABORATORY DATA: Please see below. Laboratory Tests 10/18/18 10:48 Red Blood Count 4.42, Mean Corpuscular Volume 87.3, Mean Corpuscular Hemoglobin 29.2, Mean Corpuscular Hemoglobin Concent 33.4, Red Cell Distribution Width 1 2.3, Neutrophils # (Auto) 10/19/18 06:33 Red Blood Count 3.97 L, Mean Corpuscular Volume 87.4, Mean Corpuscular Hemoglobin 29.2, Mean Corpuscular Hemoglobin Concent 33.4, Red Cell Distribution Width 12.2, Neutrophils # (Auto) , Calcium Level 8.7, Aspartate Amino Transf (AST/SGOT) 33, Alanine Aminotransferase (ALT/SGPT) 33, Alkaline Phosphatase 71, Total Bilirubin 0.3, Total Protein 6.5, Albumin 3.3 ASSESSMENT/PLAN: 1. . 2. . Assessment Atypical lYmphs noted possibel EBV infection vs developing heme malignancy monocytes are increasing - could be marrow recovery vs EBV infection Large uterine fibroid Plan monitor the CBC and Dif daily maintain neutropenic precautions B HCG testing Vital Signs/I&O Vital Signs Date Time Temp Pulse Resp B/P (MAP) Pulse Ox O2 Delivery O2 Flow Rate FiO2 10/19/18 06:00 99.1 81 16 115/73 (87) 98 10/18/18 17:01 Room Air I&O- Last 24 Hours up to 6 AM 10/19/18 05:59 Intake Total 2020 ml Balance 2020 ml Laboratory Data Labs 24H Laboratory Tests 2 10/18/18 20:44: Urine Color STRAW, Urine Appearance CLEAR, Urine pH 8.0, Urine Specific [place] 1.005, Urine Protein NEGATIVE, Urine Glucose (UA) NEGATIVE, Urine Ketones NEGATIVE, Urine Blood NEGATIVE, Urine Nitrite NEGATIVE, Urine Bilirubin NEGATIVE, Urine Urobilinogen 0.2, Urine Leukocyte Esterase NEGATIVE, Urine WBC (Auto) 0, Urine RBC (Auto) 1, Urine Hyaline Casts (Auto) 0, Urine Bacteria (Auto) NEGATIVE, Urine Squamous Epithelial Cells 0, Urine Sperm (Auto) 10/19/18 06:33: White Blood Count 1.3L, Red Blood Count 3.97L, Hemoglobin 11.6L, Hematocrit 34.7L, Mean Corpuscular Volume 87.4, Mean Corpuscular Hemoglobin 29.2, Mean Corpuscular Hemoglobin Concent 33.4, Red Cell Distribution Width 12.2, Platelet Count 152, Neutrophils # (Auto) , Nucleated Red Blood Cells % (auto) 0.0, Neutrophils 23L, Band Neutrophils 9, Lymphocytes (Manual) 45H, Monocytes (Man ual) 15H, Basophils (Manual) 2H, Differential Slide Review Report, Atypical Lymphocytes 6H, Platelet Estimate NORMAL, Anisocytosis 1+, Macrocytosis , Peripheral Blood Smear Path Consult PERIPHERAL SMEAR, Anion Gap 8, Glomerular Filtration Rate > 60.0, Estimated Mean Plasma Glucose 114H, Hemoglobin A1c 5.6, Blood Urea Nitrogen 7, Creatinine 0.73, Sodium Level 140, Potassium Level 4.0, Chloride Level 108H, Carbon Dioxide Level 24, Calcium Level 8.7, Aspartate Amino Transf (AST/SGOT) 33, Alanine Aminotransferase (ALT/SGPT) 33, Alkaline Phosphatase 71, Total Bilirubin 0.3, Total Protein 6.5, Albumin 3.3, Albumin/Globulin Ratio 1.03 CBC/BMP Laboratory Tests 10/19/18 06:33 Red Blood Count 3.97 L, Mean Corpuscular Volume 87.4, Mean Corpuscular Hemoglobin 29.2, Mean Corpuscular Hemoglobin Concent 33.4, Red Cell Distribution Width 12.2, Neutrophils # (Auto) , Calcium Level 8.7, Aspartate Amino Transf (AST/SGOT) 33, Alanine Aminotransferase (ALT/SGPT) 33, Alkaline Phosphatase 71, Total Bilirubin 0.3, Total Protein 6.5, Albumin 3.3 Microbiology Microbiology 10/18/18 Blood Culture - Preliminary, Resulted No growth after 24 hours . All specim... 10/18/18 Blood Culture - Preliminary, Resulted No growth after 24 hours . All specim... 10/18/18 Blood Culture - Preliminary, Resulted No growth after 24 hours . All specim... 10/18/18 Respiratory Virus Panel (PCR) ([facility]) - Final, Complete Allergies Coded Allergies: No Known Allergies (Unverified , 06/27/16) Home Medications Scheduled No122/Iron/Folic Acid ( Multi Tablet) 1 Each Tablet, 1 TAB PO DAILY, (Reported) Scheduled PRN Acetaminophen (Tylenol Extra Strength) 500 Mg Tablet, 1,000 MG PO TID PRN for PAIN, (Reported) Ibuprofen (Ibuprofen) 200 Mg Capsule, 400 MG PO QID PRN for PAIN, (Reported) Kaylee Fay MD Oct 19, 2018 14:50
[2018-10-19 15:12] LABS: HCG, SERUM QUANTITATIVE < 1.0 MIU/ML
[2018-10-19 15:27] VITALS: BP 114/72
[2018-10-19 22:00] VITALS: BP 111/68
[2018-10-20] MEDS: CEFEPIME HCL 2 GM in D5W MINI-BAG PLUS 50 ML IV SCH ×3 (00:21→17:09)
[2018-10-20 06:00] VITALS: BP 107/65
[2018-10-20 06:27] LABS: HEMATOCRIT 35.6 % (36.0-47.0); HEMOGLOBIN 11.9 g/dl (12.0-15.5); MEAN CORPUSCULAR HEMOGLOBIN 29.6 pg (27.0-33.0); MEAN CORPUSCULAR HGB CONC 33.4 g/dl (32.0-36.5); MEAN CORPUSCULAR VOLUME 88.6 fl (80.0-96.0); PLATELET COUNT, AUTOMATED 158 10^3/uL (150-450); RED BLOOD COUNT 4.02 10^6/uL (4.00-5.40)
[2018-10-20 06:32] LABS: WHITE BLOOD COUNT 1.9 10^3/uL (4.0-10.0)
[2018-10-20 06:43] LABS: ANISOCYTOSIS 1+; ATYPICAL LYMPH 3 % (0-5); BASOPHILS 1 % (0-1); EOSINOPHILS 1 % (0-3); LYMPHOCYTES 59 % (16-44); METAMYELOCYTES 1 % (0-0); MONOCYTES 8 % (0-5); NEUTROPHILS 27 % (28-66); PLATELET ESTIMATE NORMAL (NORMAL); POIKILOCYTOSIS 1+
[2018-10-20 06:52] LABS: ALBUMIN 3.3 GM/DL (3.2-5.2); ALT/SGPT 45 U/L (12-78); BILIRUBIN,TOTAL 0.4 MG/DL (0.2-1.0); BLOOD UREA NITROGEN 10 MG/DL (7-18); CARBON DIOXIDE LEVEL 28 MEQ/L (21-32); CHLORIDE LEVEL 107 MEQ/L (98-107); CREATININE FOR GFR 0.72 MG/DL (0.55-1.30); GLOMERULAR FILTRATION RATE > 60.0 (>60); GLUCOSE, FASTING 104 MG/DL (70-100); POTASSIUM SERUM 4.3 MEQ/L (3.5-5.1); SODIUM LEVEL 141 MEQ/L (136-145); TOTAL PROTEIN 7.2 GM/DL (6.4-8.2)
--- NOTE | 2018-10-20 10:23 | IPNPDOC ---
Subjective Date Seen The patient was seen on 10/20/18. Subjective Chief Complaint/HPI Patient is awake, comfortable, pleasant, in good spirits offers no new complaints, afebrile General: Denies: ROS Unobtainable, Chills, Night Sweats, Fatigue, Malaise, Normal Appetite, Other Symptoms Constitutional: Denies: Chills, Fever, Malaise, Night Sweats, Weakness, Fatigue, Weight Loss, Lethargy, Other Eyes: Denies: Pain, Vision change, Conjunctivae inflammation, Eyelid in flammation, Redness, Other ENT: Denies: Head Aches, Ear Pain, Dysphagia, Sinus Congestion, Post Nasal Drip, Sore Throat, Epistaxis, Other Symptoms Skin: Denies: Rash, Lesions, Jaundice, Bruising, Itching, Dry, Breakdown, Nail Changes, Other Pulmonary: Denies: Dyspnea, Cough, Pleuritic Chest Pain, Other Symptoms Cardiovascular: Denies: Chest Pain, Palpitations, Orthopnea, Paroxysmal Noc. Dyspnea, Edema, Lt Headedness, Other Symptoms Gastrointestinal: Denies: Nausea, Vomiting, Abdominal Pain, Diarrhea, Constipation, Melena, Hematochezia, Other Symptoms Endocrine: Denies: Polydipsia, Polyphagia, Polyuria, Heat Intolerance, Cold Intolerance, Other Endocrine Sx Musculoskeletal: Denies: Neck Pain, Back Pain, Shoulder Pain, Arm Pain, Hand Pain, Leg Pain, Foot Pain, Joint Pain, Muscle Pain, Spasms, Other Symptoms Neurological: Denies: Weakness, Numbness, Incoordination, Change in speech, Confusion, Seizures, Other Symptoms Objective Physical Examination General Exam: Positive: No Acute Distress Eye Exam: Positive: Sclera icteric Neck Exam: Positive: Supple Chest Exam: Positive: Clear to auscultation, Normal air movement Heart Exam: Positive: Rate Normal, Regular Rhythm, Normal S1, Normal S2 Abdomen Exam: Positive: Normal bowel sounds, Soft Extremity Exam: Positive: Normal pulses Skin Exam: Positive: Nl turgor and temperature Psych Exam: Positive: Anxiety, Oriented x 3 Assessment /Plan Problems (1) Febrile neutropenia Status: Acute Problem Text: Patient neutropenia, most likely secondary to viral infection Influenza and Monospot tests are negative so far Hepatitis, HIV, CMV, and respiratory syncytial virus are still pending Rheumatology and immunology workup pending Patient has been started on cefepime as a prophylaxis Patient in reverse isolation Patient is afebrile and asymptomatic at the present time We'll continue monitoring patient's WBC count Hematology consult appreciated Discussed with patient and her at the bedside and agree with the management Plan/VTE VTE Prophylaxis Ordered?: No VTE Exclusion Mechanical Proph: Low Risk for VTE VTE Exclusion Pharmacological: At Low Risk for VTE VS, I&O, 24H, Fishbone Vital Signs/I&O Vital Signs Date Time Temp Pulse Resp B/P (MAP) Pulse Ox O2 Delivery O2 Flow Rate FiO2 10/20/18 06:00 98.4 66 16 107/65 (79) 98 10/18/18 17:01 Room Air I&O- Last 24 Hours up to 6 AM 10/20/18 05:59 Intake Total 1270 ml Balance 1270 ml Laboratory Data 24H LABS Laboratory Tests 2 10/20/18 05:49: White Blood Count 1.9L, Red Blood Count 4.02, Hemoglobin 11.9L, Hematocrit 35.6L, Mean Corpuscular Volume 88.6, Mean Corpuscular Hemoglobin 29.6, Mean Corpuscular Hemoglobin Concent 33.4, Red Cell Distribution Width 12.3, Platelet Count 158, Neutrophils # (Auto) , Nucleated Red Blood Cells % (auto) 0.0, Neutrophils 27L, Lymphocytes (Manual) 59H, Monocytes (Manual) 8H, Eosinophils (Manual) 1, Basophils (Manual) 1, Metamyelocytes 1H, Atypical Lymphocytes 3, Platelet Estimate NORMAL, Poikilocytosis 1+, Anisocytosis 1+, Anion Gap 6L, Glomerular Filtration Rate > 60.0, Blood Urea Nitrogen 10, Creatinine 0.72, Sodium Level 141, Potassium Level 4.3, Chloride Level 107, Carbon Dioxide Level 28, Calcium Level 9.0, Aspartate Amino Transf (AST/SGOT) 45H, Alanine Aminotransferase (ALT/SGPT) 45, Alkaline Phosphatase 74, Total Bilirubin 0.4, Total Protein 7.2, Albumin 3.3, Albumin/Globulin Ratio 0.85L 10/20/18 08:56: CBC/BMP Laboratory Tests 10/20/18 05:49 Red Blood Count 4.02, Mean Corpuscular Volume 88.6, Mean Corpuscular Hemoglobin 29.6, Mean Corpuscular Hemoglobin Concent 33.4, Red Cell Distribution Width 12.3, Neutrophils # (Auto) , Calcium Level 9.0, Aspartate Amino Transf (AST/SGOT) 45 H, Alanine Aminotransferase (ALT/SGPT) 45, Alkaline Phosphatase 74, Total Bilirubin 0.4, Total Protein 7.2, Albumin 3.3 Microbiology Microbiology 10/18/18 Blood Culture - Preliminary, Resulted No growth after 24 hours . All specim... 10/18/18 Blood Culture - Preliminary, Resulted No growth after 24 hours . All specim... 10/18/18 Blood Culture - Preliminary, Resulted No growth after 24 hours . All specim... 10/18/18 Respiratory Virus Panel (PCR) ([facility]) - Final, Complete SEAN HAMILTON MD Oct 20, 2018 10:23
[2018-10-20] MEDS ORDERED: LORazepam 1 MG TAB PO STA (11:35)
[2018-10-20] MEDS ORDERED: LIDOCAINE 1% MDV 20ML VIAL SC ONE (12:00)
[2018-10-20 15:18] VITALS: BP 112/66
[2018-10-20 15:52] LABS: HEPATITIS A ANTIBODY IGM NEGATIVE (NEGATIVE); HEPATITIS B CORE ANTIBODY IGM NEGATIVE (NEGATIVE); HEPATITIS B SURFACE ANTIGEN NEGATIVE (NEGATIVE); HIV 1&2 SCREEN CENTAUR NEGATIVE (NEGATIVE)
[2018-10-20 21:34] VITALS: BP 114/69
[2018-10-21] MEDS: CEFEPIME HCL 2 GM in D5W MINI-BAG PLUS 50 ML IV SCH ×3 (01:01→16:59)
[2018-10-21 06:41] LABS: HEMATOCRIT 37.2 % (36.0-47.0); HEMOGLOBIN 12.3 g/dl (12.0-15.5); MEAN CORPUSCULAR HEMOGLOBIN 29.1 pg (27.0-33.0); MEAN CORPUSCULAR HGB CONC 33.1 g/dl (32.0-36.5); MEAN CORPUSCULAR VOLUME 88.2 fl (80.0-96.0); PLATELET COUNT, AUTOMATED 186 10^3/uL (150-450); RED BLOOD COUNT 4.22 10^6/uL (4.00-5.40); WHITE BLOOD COUNT 3.2 10^3/uL (4.0-10.0)
[2018-10-21 06:49] VITALS: BP 116/68
[2018-10-21 07:05] LABS: ALBUMIN 3.4 GM/DL (3.2-5.2); ALT/SGPT 80 U/L (12-78); BILIRUBIN,TOTAL 0.2 MG/DL (0.2-1.0); BLOOD UREA NITROGEN 10 MG/DL (7-18); CALCIUM LEVEL 9.1 MG/DL (8.5-10.1); CARBON DIOXIDE LEVEL 26 MEQ/L (21-32); CHLORIDE LEVEL 108 MEQ/L (98-107); CREATININE FOR GFR 0.67 MG/DL (0.55-1.30); GLOMERULAR FILTRATION RATE > 60.0 (>60); GLUCOSE, FASTING 105 MG/DL (70-100); POTASSIUM SERUM 3.9 MEQ/L (3.5-5.1); SODIUM LEVEL 140 MEQ/L (136-145); TOTAL PROTEIN 7.3 GM/DL (6.4-8.2)
[2018-10-21 07:10] LABS: BASOPHILS 5 % (0-1); EOSINOPHILS 4 % (0-3); LYMPHOCYTES 51 % (16-44); METAMYELOCYTES 1 % (0-0); MONOCYTES 10 % (0-5); MYELOCYTES 1 % (0-0); NEUTROPHILS 28 % (28-66)
[2018-10-21 07:11] LABS: PLATELET ESTIMATE NORMAL (NORMAL)
[2018-10-21 08:06] LABS: ANTINUCLEAR ANTIBODIES DIRECT Negative (Negative)
--- NOTE | 2018-10-21 10:49 | IPNPDOC ---
Subjective Date Seen The patient was seen on 10/21/18. Subjective Chief Complaint/HPI Patient is very comfortable in no apparent distress, afebrile. No acute complaints General: Denies: ROS Unobtainable, Chills, Night Sweats, Fatigue, Malaise, Normal Appetite, Other Symptoms Constitutional: Denies: Chills, Fever, Malaise, Night Sweats, Weakness, Fatigue, Weight Loss, Lethargy, Other Eyes: Denies: Pain, Vision change, Conjunctivae inflammation, Eyelid inflammati on, Redness, Other ENT: Denies: Head Aches, Ear Pain, Dysphagia, Sinus Congestion, Post Nasal Drip, Sore Throat, Epistaxis, Other Symptoms Skin: Denies: Rash, Lesions, Jaundice, Bruising, Itching, Dry, Breakdown, Nail Changes, Other Pulmonary: Denies: Dyspnea, Cough, Pleuritic Chest Pain, Other Symptoms Cardiovascular: Denies: Chest Pain, Palpitations, Orthopnea, Paroxysmal Noc. Dyspnea, Edema, Lt Headedness, Other Symptoms Gastrointestinal: Denies: Nausea, Vomiting, Abdominal Pain, Diarrhea, Constipation, Melena, Hematochezia, Other Symptoms Musculoskeletal: Denies: Neck Pain, Back Pain, Shoulder Pain, Arm Pain, Hand Pain, Leg Pain, Foot Pain, Joint Pain, Muscle Pain, Spasms, Other Symptoms Neurological: Denies: Weakness, Numbness, Incoordination, Change in speech, Confusion, Seizures, Other Symptoms Objective Physical Examination General Exam: Positive: No Acute Distress Neck Exam: Positive: Supple Chest Exam: Positive: Clear to auscultation, Normal air movement Heart Exam: Positive: Rate Normal, Regular Rhythm, Normal S1, Normal S2 Abdomen Exam: Positive: Normal bowel sounds, Soft Extremity Exam: Positive: Normal pulses Skin Exam: Positive: Nl turgor and temperature Psych Exam: Positive: Mood NL Assessment /Plan Problems (1) Febrile neutropenia Status: Acute Problem Text: Patient neutropenia, most likely secondary to viral infection Influenza. Monospot tests are negative Acute Hepatitis profile is negative Rheumatology and immunology workup pending Patient has been started on cefepime as a prophylaxis, which can be DC'd on discharge Patient in reverse isolation Patient is afebrile and asymptomatic at the present time Patient's WBC count is 3.2 today. If is within normal range by tomorrow, she can be discharged home and follow with hematology as an outpatient Discussed with patient and her mother at the bedside about her care plan Plan/VTE VTE Prophylaxis Ordered?: No VTE Exclusion Mechanical Proph: Low Risk for VTE VTE Exclusion Pharmacological: At Low Risk for VTE VS, I&O, 24H, Fishbone Vital Signs/I&O Vital Signs Date Time Temp Pulse Resp B/P (MAP) Pulse Ox O2 Delivery O2 Flow Rate FiO2 10/21/18 06:49 98.2 87 16 116/68 (84) 98 10/18/18 17:01 Room Air I&O- Last 24 Hours up to 6 AM 10/21/18 05:59 Intake Total 2040 ml Output Total 0 ml Balance 2040 ml Laboratory Data 24H LABS Laboratory Tests 2 10/21/18 06:29: Nucleated Red Blood Cells % (auto) 0.0, Neutrophils 28, Lymphocytes (Manual) 51H, Monocytes (Manual) 10H, Eosinophils (Manual) 4H, Basophils (Manual) 5H, Metamyelocytes 1H, Myelocytes 1H, Platelet Estimate NORMAL, Red Blood Cell Morphology NORMAL, Anion Gap 6L, Glomerular Filtration Rate > 60.0, Blood Urea Nitrogen 10, Creatinine 0.67, Sodium Level 140, Potassium Level 3.9, Chloride Level 108H, Carbon Dioxide Level 26, Calcium Level 9.1, Aspartate Amino Transf (AST/SGOT) 75H, Alanine Aminotransferase (ALT/SGPT) 80H, Alkaline Phosphatase 75, Total Bilirubin 0.2, Total Protein 7.3, Albumin 3.4, Albumin/Globulin Ratio 0.87L CBC/BMP Laboratory Tests 10/21/18 06:29 Red Blood Count 4.22, Mean Corpuscular Volume 88.2, Mean Corpuscular Hemoglobin 29.1, Mean Corpuscular Hemoglobin Concent 33.1, Red Cell Distribution Width 12.3, Calcium Level 9.1, Aspartate Amino Transf (AST/SGOT) 75 H, Alanine Aminotransferase (ALT/SGPT) 80 H, Alkaline Phosphatase 75, Total Bilirubin 0.2, Total Protein 7.3, Albumin 3.4 Microbiology Microbiology 10/18/18 Blood Culture - Preliminary, Resulted No Growth after 48 hours. All Specime... 10/18/18 Blood Culture - Preliminary, Resulted No Growth after 48 hours. All Specime... 10/18/18 Blood Culture - Preliminary, Resulted No Growth after 48 hours. All Specime... 10/18/18 Respiratory Virus Panel (PCR) ([facility]) - Final, Complete SEAN HAMILTON MD Oct 21, 2018 10:49
[2018-10-21 15:09] VITALS: BP 119/90
[2018-10-21 20:27] VITALS: BP 117/70
[2018-10-22 00:06] LABS: EBV VIRAL CAPSID AG IgM <36.0 U/mL (0.0-35.9)
[2018-10-22] MEDS: CEFEPIME HCL 2 GM in D5W MINI-BAG PLUS 50 ML IV SCH ×2 (01:06→08:42)
[2018-10-22 05:48] VITALS: BP 125/70
[2018-10-22 06:39] LABS: BASO % 0.8 % (0.0-1.0); EOS # 0.1 10^3/uL (0.0-0.5); EOS % 2.7 % (0.0-3.0); HEMATOCRIT 38.1 % (36.0-47.0); HEMOGLOBIN 12.7 g/dl (12.0-15.5); LYMPH # 1.9 10^3/uL (1.5-5.0); LYMPH % 39.8 % (24.0-44.0); MEAN CORPUSCULAR HEMOGLOBIN 29.3 pg (27.0-33.0); MEAN CORPUSCULAR HGB CONC 33.3 g/dl (32.0-36.5); MONO # 0.4 10^3/uL (0.0-0.8); MONO % 7.3 % (0.0-5.0); NEUTROPHILS # 2.3 10^3/uL (1.5-8.5); NEUTROPHILS % 48.8 % (36.0-66.0); PLATELET COUNT, AUTOMATED 250 10^3/uL (150-450); RED BLOOD COUNT 4.33 10^6/uL (4.00-5.40); WHITE BLOOD COUNT 4.8 10^3/uL (4.0-10.0)
[2018-10-22 06:58] LABS: ALBUMIN 3.5 GM/DL (3.2-5.2); ALT/SGPT 123 U/L (12-78); BILIRUBIN,TOTAL 0.2 MG/DL (0.2-1.0); BLOOD UREA NITROGEN 17 MG/DL (7-18); CALCIUM LEVEL 9.3 MG/DL (8.5-10.1); CARBON DIOXIDE LEVEL 25 MEQ/L (21-32); CHLORIDE LEVEL 106 MEQ/L (98-107); CREATININE FOR GFR 0.61 MG/DL (0.55-1.30); GLOMERULAR FILTRATION RATE > 60.0 (>60); GLUCOSE, FASTING 98 MG/DL (70-100); POTASSIUM SERUM 4.2 MEQ/L (3.5-5.1); SODIUM LEVEL 138 MEQ/L (136-145); TOTAL PROTEIN 7.5 GM/DL (6.4-8.2)
--- NOTE | 2018-10-22 08:10 | IPNPDOC ---
Date Seen The patient was seen on 10/22/18. No complaints of fever or chills eating OK Mother in the room as well no n/v diarrhea noted no skin rash Progress Note SUBJECTIVE: Patient is a 33 year old female seen and admitted due to febrile neutropenia had a few atypical lymphs noted no rash OBJECTIVE PHYSICAL EXAMINATION: VITAL SIGNS: Please see below. GENERAL: [well looking] HEENT: [NC AT perrl eomi ] CARDIOVASCULAR: [s1 s2 appreciated ]. RESPIRATORY: [no SOB cough ]. ABDOMINAL: [+ fibroid] EXTREMITIES: no edema noted ] NEUROLOGICAL: [intact ] PSYCHOLOGICAL: LABORATORY DATA, IMAGING STUDIES, MICROBIOLOGY: Please see below. Laboratory Tests 10/21/18 06:29 Red Blood Count 4.22, Mean Corpuscular Volume 88.2, Mean Corpuscular Hemoglobin 29.1, Mean Corpuscular Hemoglobin Concent 33.1, Red Cell Distribution Width 12.3, Calcium Level 9.1, Aspartate Amino Transf (AST/SGOT) 75 H, Alanine Aminotransferase (ALT/SGPT) 80 H, Alkaline Phosphatase 75, Total Bilirubin 0.2, Total Protein 7.3, Albumin 3.4 10/22/18 06:26 Red Blood Count 4.33, Mean Corpuscular Volume 88.0, Mean Corpuscular Hemoglobin 29.3, Mean Corpuscular Hemoglobin Concent 33.3, Red Cell Distribution Width 12.3, Calcium Level 9.3, Aspartate Amino Transf (AST/SGOT) 99 H, Alanine Aminotransferase (ALT/SGPT) 123 H, Alkaline Phosphatase 71, Total Bilirubin 0.2, Total Protein 7.5, Albumin 3.5, Neutrophils (%) (Auto) 48.8, Lymphocytes (%) (Auto) 39.8, Monocytes (%) (Auto) 7.3 H, Eosinophils (%) (Auto) 2.7, Basophils (%) (Auto) 0.8, Neutrophils # (Auto) 2.3, Lymphocytes # (Auto) 1.9, Monocytes # (Auto) 0.4, Eosinophils # (Auto) 0.1, Basophils # (Auto) 0.0 ASSESSMENT AND PLAN: neutropenia resolved likely viral etiology SC DISPOSITION: [ Ok from hematology perspective to be discharged to home Have the patient fu with hematology in 2 weeks post discharge]. VS, I&O, 24H, Fishbone Vital Signs/I&O Vital Signs Date Time Temp Pulse Resp B/P (MAP) Pulse Ox O2 Delivery O2 Flow Rate FiO2 10/22/18 05:48 97.7 79 18 125/70 (88) 98 10/18/18 17:01 Room Air I&O- Last 24 Hours up to 6 AM 10/22/18 06:00 Intake Total 2710 ml Balance 2710 ml Laboratory Data 24H LABS Laboratory Tests 2 10/22/18 06:26: Immature Granulocyte % (Auto) 0.6, White Blood Count 4.8, Red Blood Count 4.33, Hemoglobin 12.7, Hematocrit 38.1, Mean Corpuscular Volume 88.0, Mean Corpuscular Hemoglobin 29.3, Mean Corpuscular Hemoglobin Concent 33.3, Red Cell Distribution Width 12.3, Platelet Count 250, Neutrophils (%) (Auto) 48.8, Lymphocytes (%) (Auto) 39.8, Monocytes (%) (Auto) 7.3H, Eosinophils (%) (Auto) 2.7, Basophils (%) (Auto) 0.8, Neutrophils # (Auto) 2.3, Lymphocytes # (Auto) 1.9, Monocytes # (Auto) 0.4, Eosinophils # (Auto) 0.1, Basophils # (Auto) 0.0, Nucleated Red Blood Cells % (auto) 0.0, Anion Gap 7L, Glomerular Filtration Rate > 60.0, Blood Urea Nitrogen 17#, Creatinine 0.61, Sodium Level 138, Potassium Level 4.2, Chloride Level 106, Carbon Dioxide Level 25, Calcium Level 9.3, Aspartate Amino Transf (AST/SGOT) 99H, Alanine Aminotransferase (ALT/SGPT) 123H, Alkaline Phosphatase 71, Total Bilirubin 0.2, Total Protein 7.5, Albumin 3.5, Albumin/Globulin Ratio 0.88L CBC/BMP Laboratory Tests 10/22/18 06:26 Red Blood Count 4.33, Mean Corpuscular Volume 88.0, Mean Corpuscular Hemoglobin 29.3, Mean Corpuscular Hemoglobin Concent 33.3, Red Cell Distribution Width 12.3, Neutrophils (%) (Auto) 48.8, Lymphocytes (%) (Auto) 39.8, Monocytes (%) (Auto) 7.3 H, Eosinophils (%) (Auto) 2.7, Basophils (%) (Auto) 0.8, Neutrophils # (Auto) 2.3, Lymphocytes # (Auto) 1.9, Monocytes # (Auto) 0.4, Eosinophils # (Auto) 0.1, Basophils # (Auto) 0.0, Calcium Level 9.3, Aspartate Amino Transf (AST/SGOT) 99 H, Alanine Aminotransferase (ALT/SGPT) 123 H, Alkaline Phosphatase 71, Total Bilirubin 0.2, Total Protein 7.5, Albumin 3.5 Microbiology Microbiology 10/18/18 Blood Culture - Preliminary, Resulted No Growth after 72 hours. All specime... 10/18/18 Blood Culture - Preliminary, Resulted No Growth after 72 hours. All specime... 10/18/18 Blood Culture - Preliminary, Resulted No Growth after 72 hours. All specime... 10/18/18 Respiratory Virus Panel (PCR) ([facility]) - Final, Complete Kaylee Fay MD Oct 22, 2018 08:10
--- NOTE | 2018-10-22 13:42 | DSES ---
DATE OF ADMISSION: 10/18/2018 DATE OF DISCHARGE: 10/22/2018 SMOKEHOUSE OPERATOR: Dr. Kaylee Fay, hematology/oncology. DISCHARGE DIAGNOSES: 1. Neutropenia, most likely viral in nature. 2. Febrile neutropenia, bacterial infection has been ruled out. DISCHARGE MEDICATIONS: - acetaminophen 1 gram three times a day as needed for pain - ibuprofen 400 mg four times a day as needed for pain - vitamin one tablet daily HOSPITAL COURSE: This is a 33-year-old female who presented to the emergency room complaining of fever for 5 days, muscle aches, headache without nausea or vomiting, cough or rash. No recent travel or sick contacts. The patient was found to be neutropenic with a white count of 1.3. Workup included EPV, IgM negative, IgG positive, mononucleosis screen was negative, influenza A and B were negative, DMV pending, hepatitis serology was negative. The patient was initially started on empiric antibiotics with intravenous cefepime every 8 hours. Oncologist was consulted, Dr. Fay, who felt that the patient has no bacterial infection and antibiotics could be discontinued. Febrile neutropenia was felt to be secondary to a viral infection. White count improved to 4.8 on discharge, hemoglobin 12, hematocrit 38. There was no bandemia. Urinalysis was negative. Microbiology had no growth. Her blood cultures and respiratory panel were negative. IMAGING STUDIES: Chest x-ray on 10/17/2018 which showed no acute cardiopulmonary process. The patient was subsequently discharged home in stable condition to followup with sock lining stitcher as an outpatient within 2 weeks. LABORATORIES ON DISCHARGE: White count 4.8, hemoglobin 12, hematocrit 38, platelet count 250. Sodium 138, potassium 4.2, chloride 106, bicarbonate 25, BUN 17, creatinine 0.61, glucose of 98. Blood cultures from 10/18/2018, three sets, no growth after 72 hours. Respiratory panel was negative on 10/18/2018. Chest x-ray showed no acute cardiopulmonary process. Time spent on discharge was 30 minutes. MTDD
[2018-10-23 09:35] LABS: ALBUMIN 3.88 GM/DL (3.29-5.55); ALBUMIN % 56.2 % (55.8-66.1)
[2018-10-23 09:36] LABS: ALPHA-1-GLOBULIN % 6.3 % (2.9-4.9); ALPHA-1-GLOBULINS 0.43 GM/DL (0.17-0.41); ALPHA-2-GLOBULINS 0.73 GM/DL (0.42-0.99); ALPHA-2-GLOBULINS % 10.6 % (7.1-11.8); BETA-1-GLOBULINS 0.42 GM/DL (0.28-0.60); BETA-1-GLOBULINS % 6.1 % (4.7-7.2); BETA-2-GLOBULINS 0.37 GM/DL (0.19-0.55); BETA-2-GLOBULINS % 5.4 % (3.2-6.5); GAMMA GLOBULIN % 15.4 % (11.1-18.8); GAMMA GLOBULINS 1.06 GM/DL (0.65-1.58)
[2018-10-24 00:06] LABS: ANCA-ATYPICAL <1:20 titer (Neg:<1:20); CMV QUANT DNA PCR (PLASMA) Negative (Negative); CYTOMEGALOVIRUS IgM ANTIBODY <30.0 AU/mL (0.0-29.9); CYTOPLASMIC NEUTROP AB ANCA-C <1:20 titer (Neg:<1:20); PERINUCLEAR AB ANCA-P <1:20 titer (Neg:<1:20)
--- NOTE | 2018-11-03 11:44 | MEDONCPN ---
BONE MARROW BIOPSY AND ASPIRATE REPORT: DATE OF SERVICE: 10/20/2018 INDICATIONS FOR PROCEDURE: Neutropenia and pancytopenia. After written informed consent was obtained, the patient was placed into the left lateral decubitus position where the right posterior iliac crest was prepped and draped in the usual sterile fashion. The patient was infiltrated with 5 mL of 2% lidocaine solution. After 5 minutes of waiting for anesthesia to take effect, a #11 Jamshidi needle was used to obtain both aspirate and core in the same sample. Specimens were sent for cytology, flow cytometry and cytogenetics. Pressure was then applied to the area. There were no complications. Estimated blood loss was approximately 2 mL. The patient tolerated the procedure well. Unreviewed DD: Kaylee Fay MD 10/31/2018 09:38 A DT: mario 11/03/2018 11:42 A CC:
== END 2018-10-22 10:35 | disposition home or self-care (01) | DRG 660 ==
LOC: M ED 10:30 → M ED INP 16:08 → M MS5PR 17:25
PROVIDERS: ADMIT Hospitalist; ATTEND General Practice
PROC: 07DR3ZX Extraction of Iliac Bone Marrow, Percutaneous Approach, Diagnostic (ICD-10-PCS; principal; 2018-10-20)
DX: D70.9 Neutropenia, unspecified (principal); Z79.899 Other long term (current) drug therapy

== ENCOUNTER → 2018-10-28 | Outpatient (CLI) | payer BC ==
[~2018-10-28] MED LIST changes: +ACET-897 PO; +IBUP200C28 PO; -MAALOX 30 ML SUSP *UDC PO PRN; +MULTTAB20 PO
[2018-10-28 11:27] LABS: BASO # 0.1 10^3/uL (0.0-0.2); EOS # 0.1 10^3/uL (0.0-0.5); HEMATOCRIT 37.1 % (36.0-47.0); HEMOGLOBIN 12.4 g/dl (12.0-15.5); LYMPH # 2.3 10^3/uL (1.5-5.0); LYMPH % 39.1 % (24.0-44.0); MEAN CORPUSCULAR HEMOGLOBIN 29.8 pg (27.0-33.0); MEAN CORPUSCULAR HGB CONC 33.4 g/dl (32.0-36.5); MEAN CORPUSCULAR VOLUME 89.2 fl (80.0-96.0); MONO # 0.6 10^3/uL (0.0-0.8); MONO % 9.8 % (0.0-5.0); NEUTROPHILS # 2.8 10^3/uL (1.5-8.5); NEUTROPHILS % 47.4 % (36.0-66.0); PLATELET COUNT, AUTOMATED 367 10^3/uL (150-450); RED BLOOD COUNT 4.16 10^6/uL (4.00-5.40)
[2018-10-28 12:00] LABS: ALT/SGPT 70 U/L (12-78); BILIRUBIN,TOTAL 0.3 MG/DL (0.2-1.0); BLOOD UREA NITROGEN 12 MG/DL (7-18); C REACTIVE PROTEIN QUANTITATIV < 0.30 MG/DL (0.00-0.30); CALCIUM LEVEL 9.5 MG/DL (8.5-10.1); CARBON DIOXIDE LEVEL 29 MEQ/L (21-32); CHLORIDE LEVEL 103 MEQ/L (98-107); CREATININE FOR GFR 0.66 MG/DL (0.55-1.30); GLOMERULAR FILTRATION RATE > 60.0 (>60); GLUCOSE, FASTING 87 MG/DL (70-100); POTASSIUM SERUM 4.3 MEQ/L (3.5-5.1); SODIUM LEVEL 139 MEQ/L (136-145); TOTAL PROTEIN 7.4 GM/DL (6.4-8.2)
[2018-10-28 12:04] LABS: ERYTHROCYTE SEDIMENTATION RATE 22 mm/hr (0-20)
== END ==
LOC: M LAB 10:57
PROVIDERS: ATTEND Physician Assistant
DX: D70.8 Other neutropenia (principal)

== ENCOUNTER → 2019-01-21 | Outpatient (CLI) | payer BC ==
[2019-01-21 14:39] LABS: BASO # 0.1 10^3/uL (0.0-0.2); BASO % 1.3 % (0.0-1.0); EOS # 0.1 10^3/uL (0.0-0.5); EOS % 1.6 % (0.0-3.0); HEMATOCRIT 31.7 % (36.0-47.0); LYMPH # 2.1 10^3/uL (1.5-5.0); LYMPH % 37.3 % (24.0-44.0); MEAN CORPUSCULAR HEMOGLOBIN 27.2 pg (27.0-33.0); MEAN CORPUSCULAR HGB CONC 31.5 g/dl (32.0-36.5); MEAN CORPUSCULAR VOLUME 86.1 fl (80.0-96.0); MONO # 0.5 10^3/uL (0.0-0.8); MONO % 8.2 % (0.0-5.0); NEUTROPHILS # 2.8 10^3/uL (1.5-8.5); NEUTROPHILS % 51.4 % (36.0-66.0); PLATELET COUNT, AUTOMATED 392 10^3/uL (150-450); RED BLOOD COUNT 3.68 10^6/uL (4.00-5.40); WHITE BLOOD COUNT 5.5 10^3/uL (4.0-10.0)
[2019-01-21 18:53] LABS: PERCENT SATURATION 6.2 % (13.2-45.0); THYROID STIMULATING HORMONE 1.44 uIU/ML (0.358-3.740)
== END ==
LOC: M LAB 13:52
PROVIDERS: ATTEND Family Medicine
DX: N94.6 Dysmenorrhea, unspecified (principal)

== ENCOUNTER → 2019-01-28 | Outpatient (CLI) | payer BC ==
--- NOTE | 2019-01-28 21:24 | REP ---
PELVIC ULTRASOUND: Real-time sonographic evaluation of the pelvis performed. Transabdominal technique is utilized. The bladder measures 16.4 x 10.0 x 11.5 cm. Uterus is enlarged measuring 19.1 x 9.2 x 13.9 cm. On prior study of 06/06/2018 measurements were 16.4 x 11.2 x 12.0 cm. Endometrial thickness is 7 mm. Myometrial echotexture is diffusely heterogeneous. There appear to be multiple fibroids present. Fibroids are ill-defined. Posteriorly in the midline a fibroid measures 10.1 x 6.1 x 9.3 cm, in the anterior midline 7.8 x 3.1 x 8.5 cm and in the fundus 7.1 x 5.6 x 12.1 cm. Fibroids displace the endometrium. There is no endometrial fluid. Ovaries appear normal in size and echotexture, right ovary measuring 5.1 x 2.8 x 3.2 cm and left ovary 4.9 x 1.3 x 3.0 cm. There is no adnexal mass or free fluid. There is no torsion of either ovary with duplex Doppler evaluation. IMPRESSION: Markedly enlarged fibroid uterus as above. Electronically Signed by Rios Francis MD 01/29/2019 08:48 A
== END ==
LOC: M RAD 17:06
PROVIDERS: ATTEND Obstetrics & Gynecology
DX: N93.8 Other specified abnormal uterine and vaginal bleeding (principal); D25.9 Leiomyoma of uterus, unspecified; N85.2 Hypertrophy of uterus

== ENCOUNTER 2019-02-09 07:52 | Outpatient (CLI) | payer BC ==
[~2019-02-09] VITALS: Ht 170.2 cm; Wt 84.6 kg
[2019-02-09 08:00] VITALS: BP 146/66
[2019-02-09] MEDS ORDERED: FERRIC CARBOXYMALTOSE INJ 750 MG in NS 250 ML IV ONE (08:15)
[2019-02-09] MEDS ORDERED: PROG1CAP8 PO (08:27)
[2019-02-09 10:45] VITALS: BP 126/64
[2019-02-09 11:05] VITALS: BP 121/60
== END 2019-02-09 11:05 | disposition home or self-care (01) ==
LOC: M INFU 07:52
PROVIDERS: ATTEND Physician Assistant
DX: D50.9 Iron deficiency anemia, unspecified (principal)
CPT/HCPCS: 96365; 96366; J1439

== ENCOUNTER → 2019-04-28 | Outpatient (CLI) | payer BC ==
[~2019-04-28] MED LIST changes: +PROG1CAP8 PO
[2019-04-28 19:20] LABS: BASO # 0.1 10^3/uL (0.0-0.2); BASO % 0.6 % (0.0-1.0); EOS # 0.1 10^3/uL (0.0-0.5); EOS % 1.7 % (0.0-3.0); HEMATOCRIT 39.8 % (36.0-47.0); HEMOGLOBIN 13.8 g/dl (12.0-15.5); LYMPH # 2.7 10^3/uL (1.5-5.0); LYMPH % 32.5 % (24.0-44.0); MEAN CORPUSCULAR HEMOGLOBIN 30.1 pg (27.0-33.0); MEAN CORPUSCULAR HGB CONC 34.7 g/dl (32.0-36.5); MEAN CORPUSCULAR VOLUME 86.7 fl (80.0-96.0); MONO # 0.7 10^3/uL (0.0-0.8); MONO % 8.3 % (0.0-5.0); NEUTROPHILS # 4.7 10^3/uL (1.5-8.5); NEUTROPHILS % 56.5 % (36.0-66.0); PLATELET COUNT, AUTOMATED 322 10^3/uL (150-450); RED BLOOD COUNT 4.59 10^6/uL (4.00-5.40); WHITE BLOOD COUNT 8.3 10^3/uL (4.0-10.0)
[2019-04-28 19:43] LABS: ALBUMIN 3.9 GM/DL (3.2-5.2); ALT/SGPT 23 U/L (12-78); BILIRUBIN,TOTAL 0.2 MG/DL (0.2-1.0); BLOOD UREA NITROGEN 8 MG/DL (7-18); CALCIUM LEVEL 8.8 MG/DL (8.5-10.1); CARBON DIOXIDE LEVEL 26 MEQ/L (21-32); CHLORIDE LEVEL 106 MEQ/L (98-107); CREATININE FOR GFR 0.61 MG/DL (0.55-1.30); FERRITIN 33 NG/ML (8-252); GLOMERULAR FILTRATION RATE > 60.0 (>60); GLUCOSE, FASTING 73 MG/DL (70-100); IRON (FE) 54 UG/DL (50-170); PERCENT SATURATION 19.9 % (13.2-45.0); POTASSIUM SERUM 3.7 MEQ/L (3.5-5.1); SODIUM LEVEL 139 MEQ/L (136-145); TOTAL IRON BINDING CAPACITY 272 UG/DL (250-450); TOTAL PROTEIN 7.3 GM/DL (6.4-8.2)
== END ==
LOC: M LAB 17:48
PROVIDERS: ATTEND Physician Assistant
DX: D64.9 Anemia, unspecified (principal)

== ENCOUNTER → 2019-07-27 | Outpatient (CLI) | payer BC ==
[2019-07-27 10:52] LABS: BASO # 0.1 10^3/uL (0.0-0.2); BASO % 0.7 % (0.0-1.0); EOS # 0.2 10^3/uL (0.0-0.5); EOS % 2.1 % (0.0-3.0); HEMOGLOBIN 12.4 g/dl (12.0-15.5); LYMPH % 13.3 % (24.0-44.0); MEAN CORPUSCULAR HEMOGLOBIN 30.2 pg (27.0-33.0); MEAN CORPUSCULAR HGB CONC 32.6 g/dl (32.0-36.5); MEAN CORPUSCULAR VOLUME 92.7 fl (80.0-96.0); MONO # 0.7 10^3/uL (0.0-0.8); MONO % 8.7 % (0.0-5.0); NEUTROPHILS # 5.7 10^3/uL (1.5-8.5); NEUTROPHILS % 74.8 % (36.0-66.0); PLATELET COUNT, AUTOMATED 314 10^3/uL (150-450); WHITE BLOOD COUNT 7.6 10^3/uL (4.0-10.0)
[2019-07-27 12:10] LABS: ALBUMIN 3.2 GM/DL (3.2-5.2); ALT/SGPT 28 U/L (12-78); BILIRUBIN,TOTAL 0.2 MG/DL (0.2-1.0); BLOOD UREA NITROGEN 9 MG/DL (7-18); CALCIUM LEVEL 9.1 MG/DL (8.5-10.1); CARBON DIOXIDE LEVEL 29 MEQ/L (21-32); CHLORIDE LEVEL 104 MEQ/L (98-107); CREATININE FOR GFR 0.61 MG/DL (0.55-1.30); FERRITIN 117 NG/ML (8-252); GLOMERULAR FILTRATION RATE > 60.0 (>60); GLUCOSE, FASTING 87 MG/DL (70-100); IRON (FE) 15 UG/DL (50-170); PERCENT SATURATION 6.1 % (13.2-45.0); POTASSIUM SERUM 4.3 MEQ/L (3.5-5.1); SODIUM LEVEL 140 MEQ/L (136-145); TOTAL IRON BINDING CAPACITY 246 UG/DL (250-450); TOTAL PROTEIN 7.2 GM/DL (6.4-8.2)
[2019-07-28 23:07] LABS: ANA (HEP2) Positive (.)
== END ==
LOC: M LAB 10:12
PROVIDERS: ATTEND Family Medicine
DX: R53.83 Other fatigue (principal)

== ENCOUNTER 2019-07-31 08:29 | Outpatient (CLI) | payer BC ==
[~2019-07-31] VITALS: Ht 170.2 cm; Wt 84.6 kg
[2019-07-31] MEDS ORDERED: FERRIC CARBOXYMALTOSE INJ 750 MG in NS 250 ML IV ONE (08:45)
[2019-07-31 08:47] VITALS: BP 124/63
[2019-07-31 11:00] VITALS: BP 112/65
== END 2019-07-31 11:00 | disposition home or self-care (01) ==
LOC: M INFU 08:29
PROVIDERS: ATTEND Family Medicine
DX: D64.9 Anemia, unspecified (principal)
CPT/HCPCS: 96365; J1439

== ENCOUNTER → 2019-08-03 | Outpatient (CLI) | payer BC ==
[~2019-08-03] MED LIST changes: +LOES1TAB12 PO
--- NOTE | 2019-08-04 04:24 | REP ---
PELVIC ULTRASOUND: Real-time sonographic evaluation of pelvic performed utilizing transabdominal technique. Comparison made with prior exams 01/28/2019 and 06/06/2018. Uterine size has increased since these prior studies, currently 21.8 x 14.1 x 18.2 cm. Largest fibroids on the examination of 06/06/2018 were in the range of approximately 7 cm. There are again multiple fibroids present, and they are measuring larger than that prior study. Borders are difficult to define, but the largest fibroid is posteriorly located, 10.1 x 8.3 x 10.8 cm. A large fibroid on the left measures 9.6 x 8.0 x 10.1 cm. An anterior fundal fibroid measures 6.3 x 4.8 x 5.6 cm. Endometrial thickness is approximately 22 mm. Right ovary measures 4.8 x 2.6 x 3.4 cm and left ovary 3.0 x 1.6 x 1.7 cm. There is blood flow seen in each ovary with duplex Doppler interrogation, with no torsion. Cystic structure of the left ovary likely represents a dominant follicle 2.4 cm in maximum diameter. There is no free fluid. Bladder measures 14.7 x 11.0 x 10.5 cm. IMPRESSION: Enlarged heterogeneous fibroid uterus, as discussed in detail above, increasing in size compared to prior studies.
== END ==
LOC: M WHC 14:26
PROVIDERS: ATTEND Family Medicine
DX: D25.9 Leiomyoma of uterus, unspecified (principal); N85.8 Other specified noninflammatory disorders of uterus

== ENCOUNTER 2019-08-07 08:31 | Outpatient (CLI) | payer BC ==
[~2019-08-07] VITALS: Ht 170.2 cm; Wt 84.6 kg
[~2019-08-07 08:31] MED LIST changes: -LOES1TAB12 PO
[2019-08-07 08:35] VITALS: BP 125/66
[2019-08-07] MEDS ORDERED: FERRIC CARBOXYMALTOSE INJ 750 MG in NS 250 ML IV ONE (08:45)
[2019-08-07 09:07] VITALS: BP 103/50
[2019-08-07] MEDS ORDERED: LOES1TAB12 PO (09:37)
[2019-08-07 10:00] VITALS: BP 109/54
[2019-08-07 11:00] VITALS: BP 102/62
[2019-08-07 12:10] VITALS: BP 129/56
[2019-08-07 12:30] VITALS: BP 111/56
== END 2019-08-07 12:30 | disposition home or self-care (01) ==
LOC: M INFU 08:31
PROVIDERS: ATTEND Family Medicine
DX: D64.9 Anemia, unspecified (principal)
CPT/HCPCS: 96365; 96366; J1439

== ENCOUNTER → 2019-10-12 | Outpatient (CLI) | payer BC ==
[~2019-10-12] MED LIST changes: +HYDR200T3 PO; +IBUP80TA PO; +LOES1TAB12 PO; +PERCOCET PO
[2019-10-12 14:15] LABS: ALBUMIN 3.8 GM/DL (3.2-5.2); ALT/SGPT 19 U/L (12-78); BILIRUBIN,TOTAL 0.2 MG/DL (0.2-1.0); BLOOD UREA NITROGEN 9 MG/DL (7-18); C REACTIVE PROTEIN QUANTITATIV 1.27 MG/DL (0.00-0.30); CALCIUM LEVEL 9.8 MG/DL (8.5-10.1); CARBON DIOXIDE LEVEL 29 MEQ/L (21-32); CHLORIDE LEVEL 102 MEQ/L (98-107); CREATININE FOR GFR 0.69 MG/DL (0.55-1.30); GLOMERULAR FILTRATION RATE > 60.0 (>60); GLUCOSE, FASTING 101 MG/DL (70-100); POTASSIUM SERUM 4.1 MEQ/L (3.5-5.1); SODIUM LEVEL 137 MEQ/L (136-145); TOTAL PROTEIN 7.6 GM/DL (6.4-8.2)
== END ==
LOC: M LAB 13:11
PROVIDERS: ATTEND Nurse Practitioner Family
DX: R76.8 Other specified abnormal immunological findings in serum (principal)

== ENCOUNTER → 2019-10-30 | Outpatient (CLI) | payer BC | LOC: M LABSMTC 09:36 | PROVIDERS: ATTEND Anesthesiology | DX: Z01.812 Encounter for preprocedural laboratory examination (principal); Z20.828 Contact with and (suspected) exposure to other viral communicable diseases | CPT/HCPCS: C9803; U0003 ==

== ENCOUNTER → 2019-11-27 | Outpatient (CLI) | payer BC | LOC: M LABSMTC 09:45 | PROVIDERS: ATTEND Anesthesiology | DX: Z01.812 Encounter for preprocedural laboratory examination (principal); Z20.828 Contact with and (suspected) exposure to other viral communicable diseases | CPT/HCPCS: C9803; U0003 ==

== ENCOUNTER 2019-12-02 05:42 | Day surgery (SDC) | payer BC ==
[~2019-12-02] VITALS: Ht 170.2 cm; Wt 77.6 kg
[2019-12-02] VITALS (8 sets, daily range): BP systolic 109–166; BP diastolic 41–88
[~2019-12-02 05:42] MED LIST changes: -IBUP80TA PO; -PERCOCET PO
[2019-12-02 06:30] LABS: HEMATOCRIT 38.5 % (36.0-47.0); HEMOGLOBIN 13.1 g/dl (12.0-15.5); MEAN CORPUSCULAR HEMOGLOBIN 30.6 pg (27.0-33.0); PLATELET COUNT, AUTOMATED 273 10^3/uL (150-450); RED BLOOD COUNT 4.28 10^6/uL (4.00-5.40)
[2019-12-02] MEDS ORDERED: LR 1,000 ML IV ONE (07:00)
[2019-12-02] MEDS ORDERED: ceFAZolin SOD 2 GM in IV 1 EA IV ONE (07:00)
[2019-12-02] MEDS ORDERED: BUPIVACAINE HCL 0.25% 30ML VIAL As Ordered ONE (07:17)
[2019-12-02] MEDS ORDERED: VASOPRESSIN INJ 20 UNITS/ML VIAL As Ordered ONE ×2 (07:17→10:43)
[2019-12-02] MEDS ORDERED: HYDROmorphone HCL 2 MG/ML 1ML VIAL (J1170) As Ordered ONE (07:50)
[2019-12-02] MEDS ORDERED: dexameTHASONE 4 MG/ML 1ML VIAL (J1100 PER 1MG) As Ordered ONE (07:50)
[2019-12-02] MEDS ORDERED: ROCURONIUM BROMIDE 50 MG/5 ML VIAL As Ordered ONE ×2 (07:50→08:08)
[2019-12-02] MEDS ORDERED: LIDOCAINE 2% 100MG/5ML SDV (FOR ANES.) As Ordered ONE (07:50)
[2019-12-02] MEDS ORDERED: propofoL 200 MG/20 ML VIAL As Ordered ONE ×2 (07:50→08:29)
[2019-12-02] MEDS ORDERED: ONDANSETRON 4MG/2ML VIAL As Ordered ONE (07:50)
[2019-12-02] MEDS ORDERED: fentaNYL 100 MCG/2 ML INJECTION (J3010) As Ordered ONE ×2 (07:50→11:53)
[2019-12-02] MEDS ORDERED: MIDAZOLAM INJ 2MG/2ML VIAL (J2250 PER 1MG) As Ordered ONE (07:50)
[2019-12-02] MEDS ORDERED: SUGAMMADEX SODIUM 500 MG/5 ML VIAL (BRIDION) As Ordered ONE (08:04)
[2019-12-02] MEDS ORDERED: ACETAMINOPHEN 1000MG 100ML IV BTL (OFIRMEV) (J0131 PER 10MG) As Ordered ONE (08:43)
[2019-12-02] MEDS ORDERED: PHENYLephrine HCL 500 MCG/5 ML (100MCG/ML) SYRINGE (J2370) As Ordered ONE ×2 (09:58→10:42)
[2019-12-02] MEDS ORDERED: UNASYN 1.5 GM VIAL As Ordered ONE (11:01)
[2019-12-02] MEDS: oxyCODONE 5MG TAB PO PRN ×2 (11:53→13:11)
[2019-12-02] MEDS ORDERED: oxyCODONE 5MG TAB As Ordered ONE (11:53)
[2019-12-02] MEDS: fentaNYL 100 MCG/2 ML INJECTION (J3010) IV PRN ×4 (11:53→13:27)
[2019-12-02] MEDS ORDERED: MORPHINE 1MG/ML IN 0.9% NACL 100ML IV BAG As Ordered ONE (12:06)
[2019-12-02] MEDS ORDERED: LR 1,000 ML IV SCH (12:30)
[2019-12-02] MEDS ORDERED: ONDANSETRON 4MG/2ML VIAL IV PRN ×2 (12:30→15:15)
[2019-12-02] MEDS ORDERED: HYDROMORPHONE HCL 0.5 MG/ 0.5 ML SYRINGE (J1170 PER 1) IV PRN (12:30)
[2019-12-02] MEDS: KETOROLAC 30 MG/ML 1ML VIAL IV SCH ×2 (13:21→18:25)
[2019-12-02] MEDS ORDERED: diphenhydrAMINE 50MG/ML VIAL (J1200) IV PRN (15:15)
[2019-12-02] MEDS ORDERED: NALOXONE INJ 0.4MG/1ML VIAL (J2310 PER 1MG) IV PRN (15:15)
[2019-12-02] MEDS ORDERED: NALBUPHINE HCL 10 MG/ML AMP (J2300) IV PRN (15:15)
[2019-12-02] MEDS ORDERED: MORPHINE 1MG/ML IN 0.9% NACL 100ML IV BAG IV PRN (15:15)
[2019-12-02] MEDS ORDERED: EPIDURAL/PCA KEYS XX PRN (15:15)
[2019-12-02] MEDS ORDERED: NS 1,000 ML IV SCH (15:15)
[2019-12-02] MEDS: LR 1,000 ML IV SCH ×2 (15:31→21:42)
[2019-12-02 15:51] LABS: BASO % 0.2 % (0.0-1.0); HEMATOCRIT 34.5 % (36.0-47.0); HEMOGLOBIN 11.6 g/dl (12.0-15.5); LYMPH # 0.4 10^3/uL (1.5-5.0); LYMPH % 3.1 % (24.0-44.0); MEAN CORPUSCULAR HEMOGLOBIN 30.5 pg (27.0-33.0); MEAN CORPUSCULAR HGB CONC 33.6 g/dl (32.0-36.5); MEAN CORPUSCULAR VOLUME 90.8 fl (80.0-96.0); MONO # 0.9 10^3/uL (0.0-0.8); NEUTROPHILS # 11.6 10^3/uL (1.5-8.5); NEUTROPHILS % 89.4 % (36.0-66.0); PLATELET COUNT, AUTOMATED 223 10^3/uL (150-450)
[2019-12-02] MEDS: AMPICILLIN SOD/SULBACTAM SOD 3 GM in D5W MINI-BAG PLUS 100 ML IV SCH ×2 (16:33→21:04)
[2019-12-02 21:40] LABS: BASO % 0.1 % (0.0-1.0); HEMATOCRIT 28.5 % (36.0-47.0); HEMOGLOBIN 9.8 g/dl (12.0-15.5); LYMPH # 0.8 10^3/uL (1.5-5.0); LYMPH % 7.5 % (24.0-44.0); MEAN CORPUSCULAR HEMOGLOBIN 30.6 pg (27.0-33.0); MEAN CORPUSCULAR HGB CONC 34.4 g/dl (32.0-36.5); MEAN CORPUSCULAR VOLUME 89.1 fl (80.0-96.0); MONO # 0.9 10^3/uL (0.0-0.8); MONO % 7.7 % (0.0-5.0); NEUTROPHILS # 9.3 10^3/uL (1.5-8.5); NEUTROPHILS % 84.4 % (36.0-66.0); PLATELET COUNT, AUTOMATED 208 10^3/uL (150-450)
[2019-12-03] MEDS: KETOROLAC 30 MG/ML 1ML VIAL IV SCH ×2 (01:13→06:40)
[2019-12-03 02:00] VITALS: BP 111/69
[2019-12-03 03:31] LABS: BASO % 0.2 % (0.0-1.0); EOS % 0.1 % (0.0-3.0); HEMATOCRIT 28.1 % (36.0-47.0); HEMOGLOBIN 9.6 g/dl (12.0-15.5); LYMPH # 1.2 10^3/uL (1.5-5.0); LYMPH % 13.5 % (24.0-44.0); MEAN CORPUSCULAR HEMOGLOBIN 30.7 pg (27.0-33.0); MEAN CORPUSCULAR HGB CONC 34.2 g/dl (32.0-36.5); MEAN CORPUSCULAR VOLUME 89.8 fl (80.0-96.0); MONO # 0.7 10^3/uL (0.0-0.8); MONO % 7.5 % (0.0-5.0); NEUTROPHILS # 6.8 10^3/uL (1.5-8.5); NEUTROPHILS % 78.5 % (36.0-66.0); PLATELET COUNT, AUTOMATED 192 10^3/uL (150-450); RED BLOOD COUNT 3.13 10^6/uL (4.00-5.40); WHITE BLOOD COUNT 8.7 10^3/uL (4.0-10.0)
[2019-12-03] MEDS: AMPICILLIN SOD/SULBACTAM SOD 3 GM in D5W MINI-BAG PLUS 100 ML IV SCH (04:29)
[2019-12-03] MEDS: LR 1,000 ML IV SCH (05:47)
[2019-12-03 06:00] VITALS: BP 113/69
[2019-12-03] MEDS: PROMETHAZINE INJ 25 MG/ML VIAL (J2550) IV PRN ×2 (09:05→14:05)
--- NOTE | 2019-12-03 09:57 | IPNPDOC ---
Text Note Date of Service The patient was seen on 12/03/19. NOTE POD 1 Jennifer is a 34yo s/p uncomplicated open myomectomy on 12/01, doing well post-op day 1. She received 2u pRBCs after surgery. She was surprised by how much discomfort the surgery caused, currently on a morphine PIER MASTER ASSISTANT and toradol. She did not sleep well last night 2/2 pain. Has not yet ambulated. Has quinteros in place draining clear yellow urine. Trying to hydrate and eating applesauce this morning when I visited her. She does not have much appetite 2/2 pain, but feels intestinal movement and interprets that as hunger. Occasional nausea. No f/c/CP/SOB. Vitals wnl, afebrile General: WDWN, resting in bed, appears mildly uncomfortable but NAD Abdomen: soft, appropriately tender to palpation with no rebound/guarding, pfannenstiel incision covered by dry/clean dressing Extremities: no edema of BLE, no pain with palpation of calves Labs: pre-op H/H 13.1/38.5 post-op/post-transfusion H/H: 9.6/28.1 Assessment: Jennifer is a 34yo s/p uncomplicated open myomectomy on 12/01, doing well post-op day 1. She received 2u pRBCs after surgery. She is hemodynami carlene stable with appropriate H/H and good urine output, no evidence of infection. Working on pain control. Plan: -Routine postop care -Clear liquid diet now, consider advancing diet later today if tolerating well -Encourage ambulation today, and if ambulating well may remove quinteros catheter later today -Morphine PIER MASTER ASSISTANT and toradol, to transition to oral ibuprofen and percocet -Encourage use of IS -K Pad -Potential discharge home tomorrow if meeting all milestones MD ANKIT Perez Fishbone I+O Emi PHAM I+O Laboratory Tests 12/02/19 15:36 12/02/19 21:11 12/03/19 03:08 Vital Signs Date Time Temp Pulse Resp B/P (MAP) Pulse Ox O2 Delivery O2 Flow Rate FiO2 12/03/19 06:00 97.4 104 14 113/69 (84) 98 Room Air 12/02/19 14:05 3 I&O- Last 24 Hours up to 6 AM 12/03/19 06:00 Intake Total 6170 ml Output Total 3625 ml Balance 2545 ml Gillian Sykes MD Dec 03, 2019 08:43
[2019-12-03 10:00] VITALS: BP 119/69
[2019-12-03 11:29] LABS: BASO % 0.2 % (0.0-1.0); EOS % 0.4 % (0.0-3.0); HEMATOCRIT 28.1 % (36.0-47.0); HEMOGLOBIN 9.5 g/dl (12.0-15.5); LYMPH # 0.8 10^3/uL (1.5-5.0); LYMPH % 8.2 % (24.0-44.0); MEAN CORPUSCULAR HEMOGLOBIN 30.8 pg (27.0-33.0); MEAN CORPUSCULAR HGB CONC 33.8 g/dl (32.0-36.5); MEAN CORPUSCULAR VOLUME 91.2 fl (80.0-96.0); MONO # 0.7 10^3/uL (0.0-0.8); NEUTROPHILS # 7.9 10^3/uL (1.5-8.5); NEUTROPHILS % 83.9 % (36.0-66.0); PLATELET COUNT, AUTOMATED 188 10^3/uL (150-450); RED BLOOD COUNT 3.08 10^6/uL (4.00-5.40); WHITE BLOOD COUNT 9.4 10^3/uL (4.0-10.0)
[2019-12-03] MEDS: PERCOCET 5MG/325MG TAB PO PRN ×2 (11:31→19:43)
[2019-12-03] MEDS ORDERED: MORPHINE 2 MG/ML 1ML VIAL (J2270) IV PRN (12:00)
[2019-12-03 14:19] VITALS: BP 116/68
[2019-12-03 15:04] LABS: BASO % 0.3 % (0.0-1.0); EOS % 0.2 % (0.0-3.0); HEMATOCRIT 29.1 % (36.0-47.0); HEMOGLOBIN 9.7 g/dl (12.0-15.5); MEAN CORPUSCULAR HEMOGLOBIN 30.1 pg (27.0-33.0); MEAN CORPUSCULAR HGB CONC 33.3 g/dl (32.0-36.5); MEAN CORPUSCULAR VOLUME 90.4 fl (80.0-96.0); MONO # 0.6 10^3/uL (0.0-0.8); MONO % 6.2 % (0.0-5.0); NEUTROPHILS # 7.6 10^3/uL (1.5-8.5); NEUTROPHILS % 81.9 % (36.0-66.0); PLATELET COUNT, AUTOMATED 239 10^3/uL (150-450); RED BLOOD COUNT 3.22 10^6/uL (4.00-5.40); WHITE BLOOD COUNT 9.3 10^3/uL (4.0-10.0)
[2019-12-03] MEDS: IBUPROFEN 800 MG TAB PO SCH ×2 (16:08→23:05)
[2019-12-03 21:29] LABS: BASO % 0.3 % (0.0-1.0); EOS # 0.1 10^3/uL (0.0-0.5); EOS % 0.8 % (0.0-3.0); HEMATOCRIT 24.8 % (36.0-47.0); HEMOGLOBIN 8.3 g/dl (12.0-15.5); LYMPH # 1.3 10^3/uL (1.5-5.0); LYMPH % 17.3 % (24.0-44.0); MEAN CORPUSCULAR HEMOGLOBIN 30.5 pg (27.0-33.0); MEAN CORPUSCULAR HGB CONC 33.5 g/dl (32.0-36.5); MEAN CORPUSCULAR VOLUME 91.2 fl (80.0-96.0); MONO # 0.6 10^3/uL (0.0-0.8); MONO % 8.2 % (0.0-5.0); NEUTROPHILS # 5.5 10^3/uL (1.5-8.5); PLATELET COUNT, AUTOMATED 172 10^3/uL (150-450); RED BLOOD COUNT 2.72 10^6/uL (4.00-5.40); WHITE BLOOD COUNT 7.6 10^3/uL (4.0-10.0)
[2019-12-03 22:00] VITALS: BP 113/56
[2019-12-04 02:00] VITALS: BP 110/56
[2019-12-04 06:00] VITALS: BP 122/68
[2019-12-04] MEDS: PROMETHAZINE INJ 25 MG/ML VIAL (J2550) IV PRN (06:49)
[2019-12-04] MEDS: PERCOCET 5MG/325MG TAB PO PRN ×3 (06:50→21:17)
[2019-12-04] MEDS: IBUPROFEN 800 MG TAB PO SCH ×3 (06:50→23:24)
[2019-12-04 10:00] VITALS: BP 111/57
[2019-12-04 14:00] VITALS: BP 126/74
[2019-12-04 18:00] VITALS: BP 125/74
[2019-12-04 22:00] VITALS: BP 124/73
[2019-12-05 02:00] VITALS: BP 110/72
[2019-12-05 06:00] VITALS: BP 114/66
[2019-12-05] MEDS: IBUPROFEN 800 MG TAB PO SCH (06:15)
--- NOTE | 2019-12-05 09:11 | IPNPDOC ---
Text Note Date of Service The patient was seen on 12/04/19. late entry S: Doing well. +Ambulation, + voids and pain well controlled. O: vss AF Gen: well appearing, NAD abd: soft, appropriately tender incision: C/D/I, well approximated non erythremic ext: neg calf tenderness A/P: 34yo POD #2 s/p open myomectomy, recovering in stable condition -cont routine postoperative care -d/c plans for tomorrow VS,Fishbone, I+O VS, Fishbone, I+O Vital Signs Date Time Temp Pulse Resp B/P (MAP) Pulse Ox O2 Delivery O2 Flow Rate FiO2 12/05/19 06:00 98.7 96 18 114/66 (82) 98 Room Air 12/02/19 14:05 3 I&O- Last 24 Hours up to 6 AM 12/05/19 06:00 Intake Total 1150 ml Output Total 400 ml Balance 750 ml MUSA HARRIS MD. Dec 05, 2019 09:11
[2019-12-05] MEDS ORDERED: PERCOCET PO (09:16)
[2019-12-05] MEDS ORDERED: IBUP80TA PO (09:16)
[2019-12-05] MEDS: PERCOCET 5MG/325MG TAB PO PRN (10:10)
--- NOTE | 2019-12-05 10:47 | DS.PDOC ---
Discharge Summary General Date of Admission 12/02/19 Date of Discharge 12/05/19 Attending Physician: MUSA HARRIS MD. Discharge Summary PROCEDURES PERFORMED DURING STAY: 1. Open myomectomy. 2. Blood transfusion. ADMITTING DIAGNOSES: 1. Fibroid uterus. DISCHARGE DIAGNOSES: 1. Fibroid uterus. COMPLICATIONS/CHIEF COMPLAINT: Fibroid Uterus Abnormal Uterine Bleeding. HISTORY OF PRESENT ILLNESS: Patient is a 34-year-old 1 para 1 with long history of symptomatic fibroid uterus. She has been thoroughly counseled regarding management options to include medical management, hysterectomy or myomectomy. Patient desired future fertility and desired myomectomy. Initial plan was for a robotic-assisted laparoscopic myomectomy. After exam under anesthesia, decision was made to proceed with an open myomectomy secondary to the mobility of uterus and fibroid. Patient received 2 units postoperatively for 1000ml EBL. Patient did well postoperative and was discharge home POD#3 in stable condition. DISCHARGE MEDICATIONS: Please see below. ALLERGIES: Please see below. ACTIVITY: As tolerated. DIET: Regular HOSPITAL COURSE: Uncomplicated. DISCHARGE MEDICATIONS: Please see below. ALLERGIES: Please see below. PHYSICAL EXAMINATION ON DISCHARGE: VITAL SIGNS: Please see below. GENERAL: Well-appearing ABDOMINAL EXAMINATION: Soft, appropriately tender, fundus is firm below umb ilicus EXTREMITIES: Negative calf tenderness NEUROLOGICAL EXAMINATION: Grossly intact LABORATORY DATA: Please see below. ACTIVITY: As tolerated. DIET: Regular DISCHARGE PLAN: Home DISCHARGE INSTRUCTIONS: 1. Follow-up in 2 weeks for incision check 2. Remain on pelvic rest for 6 weeks 3. Reports severe pain,heavy vaginal bleeding fever or incisional issues DISCHARGE CONDITION: Stable. Vital Signs/I&Os Vital Signs Date Time Temp Pulse Resp B/P (MAP) Pulse Ox O2 Delivery O2 Flow Rate FiO2 12/05/19 10:10 17 Room Air 12/05/19 06:00 98.7 96 114/66 (82) 98 12/02/19 14:05 3 I&O- Last 24 Hours up to 6 AM 12/05/19 06:00 Intake Total 1150 ml Output Total 400 ml Balance 750 ml Discharge Medications Scheduled Hydroxychloroquine Sulfate (Hydroxychloroquine Sulfate) 200 Mg Tablet, 200 MG PO BID, (Reported) Ibuprofen (Ibuprofen) 800 Mg Tablet, 800 MG PO Q8H Scheduled PRN Oxycodone/Acetaminophen (Oxycodone-Acetaminophen 5-325) 1 Each Tablet, 1-2 TAB PO Q6HP PRN for PAIN Miscellaneous Medications Norethindrone AC-Eth Estradiol (Loestrin 21 1-20 Tablet) 1 Each Tablet, 1 TAB PO, (Reported) states 2-3 times a day to try to control bleeding Allergies Coded Allergies: No Known Allergies (Unverified , 12/02/19) MUSA HARRIS MD. Dec 05, 2019 10:47
--- NOTE | 2019-12-18 07:38 | ROOPDOC ---
[facility] Report Of Operation Report of Operation DATE OF PROCEDURE: 12/02/19 PREOPERATIVE DIAGNOSIS: Fibroid uterus. DIAGNOSIS: Fibroid uterus. PROCEDURE PERFORMED: Abdominal myomectomy. SURGEON: Grecia Schaefer MD [employer]OR [employer]: Daniel Woods DO ANESTHESIA: General endotracheal anesthesia. ESTIMATED BLOOD LOSS: 1000 mL. INTRAVENOUS FLUIDS: 4000ml of lactated Ringer solution. 2 units packed RBCs. URINE OUTPUT: 200 mL. SPECIMEN: Fibroid. INDICATION OF OPERATION: Patient is a 34-year-old 1 para 1 long history of symptomatic fibroid uterus. She has been thoroughly counseled regarding management options to include medical management, hysterectomy or myomectomy. Patient desired future fertility and desired myomectomy. Initial plan was for a robotic-assisted laparoscopic myomectomy. After exam under anesthesia, decision was made to proceed with an open myomectomy secondary to the mobility of uterus and fibroid. Patient previously counseled for a possibility of proceeding with laparotomy. OPERATIVE FINDINGS: Patient with approximately 12 x 14 cm submucosal fundal fibroid, normal-appearing bilateral adnexa. Myomectomy involved entering the endometrial cavity. RECOMMEND PRIMARY SECTION AT 36-37 WEEKS. DESCRIPTION OF OPERATION: After informed consent was obtained and written consent reviewed, the patient was brought to the operating room where she was placed under general endotracheal anesthesia. A Maher catheter was then placed and set to gravity. She was then prepped and draped in a normal sterile fashion. A time-out was performed in the operating room identifying the patient, procedure to be performed, as well as drug allergies. A Pfannenstiel skin incision was then made and this was carried down to the underlying rectus fascia. The fascia was scored and this incision was extended bilaterally. The fascia was then dissected off from the underlying rectus muscles both superiorly and inferiorly. The rectus muscles were entered in the midline. The peritoneum was then entered sharply. This was then extended. The uterus and fibroid was then brought to the level of the incision. Next, the fibroid as well as uterus was injected with diluted vasopressin. Using a bipolar cautery, an incision was then made along the serosa of the uterus. This incision was continued in along the location of the fibroid. The fibroid was then peeled off of the surface of the myometrium. This involved entering the endometrial cavity. Hemostasis was achieved with bipolar cautery. Specimen was then collected and sent to pathology. The anterior fundus was then closed using #0 Vicryl in a running locking fashion in two layers. This was followed by a third layer for imbrication. The serosa was closed with 3-0 Vicryl. The abdomen was irrigated and suctioned. The uterine incision was then once again inspected and noted to be hemostatic. Surgicel adhesive barrier was applied over the area. The uterus was then returned the patient's abdomen. The anterior peritoneum was then reapproximated with #3-0 Vicryl. Rectus muscles reapproximated with #3-0 Vicryl. Fascia was then closed with #0 Vicryl in a running nonlocking fashion. The subcutaneous tissue was then irrigated and suctioned. The subcutaneous tissue was then reapproximated with #3-0 Vicryl. Several subdermal stitches were placed with #3-0 Vicryl and the skin was closed with #4-0 Monocryl in subcuticular fashion. The incision was then clean and dry and was dressed. The patient was then awakened from general anesthesia and taken to recovery in stable condition. Counts were correct. Dr. Woods, my instructor adjunct surgical technician played an essential role throughout the surgery. He assisted with tissue identification, retraction, as well as the meticulous nature of dissection of a fibroid and wound closure of this. GRECIA SCHAEFER MD. Dec 18, 2019 07:38
== END 2019-12-05 11:04 | disposition home or self-care (01) ==
LOC: M SDC 05:42 → M MSPAV 14:40 → M SDC 12-05 11:04
PROVIDERS: ATTEND Obstetrics & Gynecology
DX: D25.9 Leiomyoma of uterus, unspecified (principal); N93.9 Abnormal uterine and vaginal bleeding, unspecified; Z79.899 Other long term (current) drug therapy
CPT/HCPCS: 36415; 36430; 58140; 81025; 85025; 85027; 86850; 86900; 86901; 86920; 88305; 96361; 96365; 96366; 96375; 96376; J0131; J0690; J1100; J1170; J1885; J2250; J2370; J2405; J3010; P9016; P9047

== ENCOUNTER → 2020-02-16 | Outpatient (CLI) | payer BC ==
[~2020-02-16] MED LIST changes: +IBUP80TA PO; +PERCOCET PO
[2020-02-16 18:09] LABS: BASO # 0.1 10^3/uL (0.0-0.2); EOS # 0.1 10^3/uL (0.0-0.5); EOS % 1.7 % (0.0-3.0); HEMATOCRIT 39.7 % (36.0-47.0); HEMOGLOBIN 13.4 g/dl (12.0-15.5); LYMPH # 1.9 10^3/uL (1.5-5.0); LYMPH % 32.5 % (24.0-44.0); MEAN CORPUSCULAR HEMOGLOBIN 30.5 pg (27.0-33.0); MEAN CORPUSCULAR HGB CONC 33.8 g/dl (32.0-36.5); MEAN CORPUSCULAR VOLUME 90.2 fl (80.0-96.0); MONO # 0.4 10^3/uL (0.0-0.8); MONO % 7.5 % (0.0-5.0); NEUTROPHILS # 3.3 10^3/uL (1.5-8.5); PLATELET COUNT, AUTOMATED 327 10^3/uL (150-450); WHITE BLOOD COUNT 5.7 10^3/uL (4.0-10.0)
[2020-02-16 18:48] LABS: ALT/SGPT 19 U/L (12-78); BILIRUBIN,TOTAL 0.3 MG/DL (0.2-1.0); BLOOD UREA NITROGEN 9 MG/DL (7-18); CALCIUM LEVEL 9.3 MG/DL (8.5-10.1); CARBON DIOXIDE LEVEL 32 MEQ/L (21-32); CHLORIDE LEVEL 104 MEQ/L (98-107); CREATININE FOR GFR 0.72 MG/DL (0.55-1.30); FREE T4 0.99 NG/DL (0.76-1.46); GLOMERULAR FILTRATION RATE > 60.0 (>60); GLUCOSE, FASTING 91 MG/DL (70-100); MAGNESIUM LEVEL 2.4 MG/DL (1.8-2.4); POTASSIUM SERUM 3.8 MEQ/L (3.5-5.1); SODIUM LEVEL 138 MEQ/L (136-145); TOTAL PROTEIN 7.7 GM/DL (6.4-8.2)
== END ==
LOC: M LAB 16:49
PROVIDERS: ATTEND Family Medicine
DX: R00.2 Palpitations (principal)

== ENCOUNTER → 2020-03-11 | Outpatient (CLI) | payer BC ==
[2020-03-11 18:18] LABS: COMPLEMENT C3 94 MG/DL (90-180); COMPLEMENT C4 20 MG/DL (10-40)
[2020-03-16 12:07] LABS: ANTI DS-DNA AB Negative (Negative)
== END ==
LOC: M LAB 17:28
PROVIDERS: ATTEND Nurse Practitioner Family
DX: M32.9 Systemic lupus erythematosus, unspecified (principal)

== ENCOUNTER → 2020-11-02 | Outpatient (REF) | payer BC | LOC: M LAB REF 17:52 | PROVIDERS: ATTEND Physician Assistant | DX: J06.9 Acute upper respiratory infection, unspecified (principal) ==

== ENCOUNTER → 2021-08-10 | Outpatient (CLI) | payer OTHER ==
[2021-08-10 10:50] LABS: BASO # 0.1 10^3/uL (0.0-0.2); BASO % 0.6 % (0.0-1.0); EOS # 0.1 10^3/uL (0.0-0.5); EOS % 0.9 % (0.0-3.0); HEMATOCRIT 37.1 % (36.0-47.0); HEMOGLOBIN 12.8 g/dl (12.0-15.5); LYMPH # 1.4 10^3/uL (1.5-5.0); LYMPH % 15.7 % (24.0-44.0); MEAN CORPUSCULAR HEMOGLOBIN 31.1 pg (27.0-33.0); MEAN CORPUSCULAR HGB CONC 34.5 g/dl (32.0-36.5); MONO # 0.7 10^3/uL (0.0-0.8); MONO % 7.4 % (2.0-8.0); NEUTROPHILS # 6.6 10^3/uL (1.5-8.5); NEUTROPHILS % 74.9 % (36.0-66.0); PLATELET COUNT, AUTOMATED 329 10^3/uL (150-450); RED BLOOD COUNT 4.12 10^6/uL (4.00-5.40); WHITE BLOOD COUNT 8.8 10^3/uL (4.0-10.0)
[2021-08-10 11:28] LABS: ALBUMIN 4.1 GM/DL (3.2-5.2); ALT/SGPT 22 U/L (12-78); BILIRUBIN,TOTAL 0.3 MG/DL (0.2-1.0); BLOOD UREA NITROGEN 7 MG/DL (7-18); CALCIUM LEVEL 9.1 MG/DL (8.5-10.1); CARBON DIOXIDE LEVEL 27 MEQ/L (21-32); CHLORIDE LEVEL 105 MEQ/L (98-107); CHOLESTEROL LEVEL 188 MG/DL (<200); CREATININE FOR GFR 0.73 MG/DL (0.55-1.30); FREE T4 1.11 NG/DL (0.76-1.46); GLOMERULAR FILTRATION RATE > 60.0 (>60); GLUCOSE, FASTING 91 MG/DL (70-100); HDL CHOLESTEROL 40 MG/DL (>40); LDL CHOLESTEROL 127 MG/DL (<100); NON-HDL-C 148 MG/DL; POTASSIUM SERUM 4.1 MEQ/L (3.5-5.1); SODIUM LEVEL 138 MEQ/L (136-145); TOTAL PROTEIN 7.8 GM/DL (6.4-8.2); TRIGLYCERIDES LEVEL 104 MG/DL (<150)
== END ==
LOC: M LAB 09:48
PROVIDERS: ATTEND Family Medicine
DX: Z13.220 Encounter for screening for lipoid disorders (principal); Z13.29 Encounter for screening for other suspected endocrine disorder; Z13.0 Encounter for screening for diseases of the blood and blood-forming organs and certain disorders involving the immune mechanism

== ENCOUNTER → 2022-01-15 | Outpatient (CLI) | payer OTHER ==
[2022-01-15 14:33] LABS: BASO # 0.1 10^3/uL (0.0-0.2); BASO % 0.7 % (0.0-1.0); EOS # 0.1 10^3/uL (0.0-0.5); EOS % 1.9 % (0.0-3.0); HEMATOCRIT 37.8 % (36.0-47.0); HEMOGLOBIN 12.8 g/dl (12.0-15.5); LYMPH # 1.8 10^3/uL (1.5-5.0); LYMPH % 24.5 % (24.0-44.0); MEAN CORPUSCULAR HEMOGLOBIN 30.3 pg (27.0-33.0); MEAN CORPUSCULAR HGB CONC 33.9 g/dl (32.0-36.5); MEAN CORPUSCULAR VOLUME 89.4 fl (80.0-96.0); MONO # 0.4 10^3/uL (0.0-0.8); NEUTROPHILS # 4.9 10^3/uL (1.5-8.5); NEUTROPHILS % 67.5 % (36.0-66.0); PLATELET COUNT, AUTOMATED 325 10^3/uL (150-450); RED BLOOD COUNT 4.23 10^6/uL (4.00-5.40); WHITE BLOOD COUNT 7.3 10^3/uL (4.0-10.0)
[2022-01-15 14:59] LABS: FREE T4 1.11 NG/DL (0.89-1.76); THYROID STIMULATING HORMONE 2.318 uIU/ML (0.55-4.78)
[2022-01-15 15:05] LABS: ALBUMIN 4.1 G/DL (3.2-5.2); ALKALINE PHOSPHATASE 73 U/L (46-116); ALT/SGPT 26 U/L (7.0-40); AST/SGOT 24 U/L (<34); BILIRUBIN,TOTAL 0.3 MG/DL (0.3-1.2); BLOOD UREA NITROGEN 7 MG/DL (9-23); CALCIUM LEVEL 9.6 MG/DL (8.5-10.1); CARBON DIOXIDE LEVEL 27 MMOL/L (20-31); CHLORIDE LEVEL 101 MMOL/L (98-107); CHOLESTEROL LEVEL 218 MG/DL (<200); CHOLESTEROL RISK RATIO 5.16 (<5); GLOMERULAR FILTRATION RATE > 60.0 (>60); GLUCOSE, FASTING 135 MG/DL (60-100); HDL CHOLESTEROL 42.2 MG/DL (>40); NON-HDL-C 176 MG/DL; POTASSIUM SERUM 4.1 MMOL/L (3.5-5.1); SODIUM LEVEL 137 MMOL/L (136-145); TOTAL PROTEIN 7.4 G/DL (5.7-8.2); TRIGLYCERIDES LEVEL 119 MG/DL (<150)
== END ==
LOC: M LAB 14:06
PROVIDERS: ATTEND Family Medicine
DX: Z13.0 Encounter for screening for diseases of the blood and blood-forming organs and certain disorders involving the immune mechanism (principal); Z13.29 Encounter for screening for other suspected endocrine disorder

== ENCOUNTER → 2022-04-23 | Outpatient (CLI) | payer OTHER ==
[2022-04-23 13:51] LABS: C REACTIVE PROTEIN QUANTITATIV < 0.40 MG/DL (<1.0)
[2022-04-23 13:52] LABS: COMPLEMENT C3 116.6 MG/DL (84.0-160.0)
[2022-04-23 13:56] LABS: ALBUMIN 4.2 G/DL (3.2-5.2); ALKALINE PHOSPHATASE 71 U/L (46-116); ALT/SGPT 23 U/L (7.0-40); AST/SGOT 22 U/L (<34); BILIRUBIN,TOTAL 0.4 MG/DL (0.3-1.2); BLOOD UREA NITROGEN 9 MG/DL (9-23); CALCIUM LEVEL 9.4 MG/DL (8.5-10.1); CARBON DIOXIDE LEVEL 28 MMOL/L (20-31); CHLORIDE LEVEL 101 MMOL/L (98-107); CREATININE FOR GFR 0.75 MG/DL (0.55-1.30); GLOMERULAR FILTRATION RATE > 60.0 (>60); GLUCOSE, FASTING 118 MG/DL (60-100); POTASSIUM SERUM 4.1 MMOL/L (3.5-5.1); SODIUM LEVEL 136 MMOL/L (136-145); THYROID STIMULATING HORMONE 1.484 uIU/ML (0.55-4.78); TOTAL PROTEIN 7.4 G/DL (5.7-8.2)
[2022-04-23 14:11] LABS: COMPLEMENT C4 21.9 MG/DL (12-36)
[2022-04-23 14:25] LABS: BASO # 0.1 10^3/uL (0.0-0.2); BASO % 0.9 % (0.0-1.0); EOS # 0.1 10^3/uL (0.0-0.5); EOS % 1.4 % (0.0-3.0); HEMATOCRIT 38.6 % (36.0-47.0); HEMOGLOBIN 13.1 g/dl (12.0-15.5); LYMPH # 1.6 10^3/uL (1.5-5.0); LYMPH % 24.6 % (24.0-44.0); MEAN CORPUSCULAR HEMOGLOBIN 30.3 pg (27.0-33.0); MEAN CORPUSCULAR HGB CONC 33.9 g/dl (32.0-36.5); MEAN CORPUSCULAR VOLUME 89.4 fl (80.0-96.0); MONO # 0.3 10^3/uL (0.0-0.8); MONO % 4.9 % (2.0-8.0); NEUTROPHILS # 4.4 10^3/uL (1.5-8.5); NEUTROPHILS % 67.7 % (36.0-66.0); PLATELET COUNT, AUTOMATED 356 10^3/uL (150-450); RED BLOOD COUNT 4.32 10^6/uL (4.00-5.40); WHITE BLOOD COUNT 6.5 10^3/uL (4.0-10.0)
[2022-04-23 14:37] LABS: ERYTHROCYTE SEDIMENTATION RATE 25 mm/hr (0-20)
== END ==
LOC: M LAB 12:43
PROVIDERS: ATTEND Nurse Practitioner Family
DX: R76.8 Other specified abnormal immunological findings in serum (principal)

== ENCOUNTER → 2022-05-25 | Outpatient (CLI) | payer OTHER | LOC: M WUC 13:31 | PROVIDERS: ATTEND Nurse Practitioner Family | DX: R05.9 Cough, unspecified (principal) ==

== ENCOUNTER → 2022-07-25 | Outpatient (CLI) | payer OTHER ==
[~2022-07-25] MED LIST changes: -HYDR200T3 PO; +HYDR200T46 PO
[2022-07-25 10:06] LABS: BASO # 0.1 10^3/uL (0.0-0.2); BASO % 0.9 % (0.0-1.0); EOS # 0.1 10^3/uL (0.0-0.5); EOS % 2.4 % (0.0-3.0); HEMATOCRIT 38.9 % (36.0-47.0); LYMPH % 37.5 % (24.0-44.0); MEAN CORPUSCULAR HEMOGLOBIN 29.9 pg (27.0-33.0); MEAN CORPUSCULAR HGB CONC 33.4 g/dl (32.0-36.5); MEAN CORPUSCULAR VOLUME 89.4 fl (80.0-96.0); MONO # 0.4 10^3/uL (0.0-0.8); MONO % 7.8 % (2.0-8.0); NEUTROPHILS # 2.8 10^3/uL (1.5-8.5); NEUTROPHILS % 51.2 % (36.0-66.0); PLATELET COUNT, AUTOMATED 390 10^3/uL (150-450); RED BLOOD COUNT 4.35 10^6/uL (4.00-5.40); WHITE BLOOD COUNT 5.4 10^3/uL (4.0-10.0)
[2022-07-25 10:37] LABS: ERYTHROCYTE SEDIMENTATION RATE 27 mm/hr (0-20); IRON (FE) 51 UG/DL (50-170); PERCENT SATURATION 17.1 % (13.2-45.0); TOTAL IRON BINDING CAPACITY 298 UG/DL (250-425)
[2022-07-25 10:41] LABS: C REACTIVE PROTEIN QUANTITATIV < 0.40 MG/DL (<1.0)
[2022-07-25 10:42] LABS: FERRITIN 36.7 NG/ML (7.3-270.7); FREE T4 1.02 NG/DL (0.89-1.76); THYROID STIMULATING HORMONE 1.941 uIU/ML (0.55-4.78)
[2022-07-25 10:43] LABS: TOTAL 25(OH) VITAMIN D 37.9 NG/ML (20.0-100.0); VITAMIN B12 LEVEL 672 PG/ML (211-911)
[2022-07-25 10:46] LABS: FOLATE > 24.0 NG/ML (>5.4)
== END ==
LOC: M LAB 09:35
PROVIDERS: ATTEND Family Medicine
DX: R53.83 Other fatigue (principal)

== ENCOUNTER → 2022-08-09 | Outpatient (CLI) | payer OTHER | LOC: M RAD 16:02 | PROVIDERS: ATTEND Family Medicine | DX: R10.2 Pelvic and perineal pain (principal) ==

== ENCOUNTER 2022-10-23 09:21 | Day surgery (SDC) | payer OTHER ==
[~2022-10-23] VITALS: Ht 170.2 cm; Wt 85.3 kg
[~2022-10-23 09:21] MED LIST changes: +AMPH1CAP5 PO; +AMPH1TAB2 PO; +LEXA1TAB PO; +NS 1,000 ML IV ONE; +VITMTA PO
[2022-10-23 11:18] VITALS: TEMP 97.9
[2022-10-23 11:46] VITALS: BP 132/81; O2SAT 100
== END 2022-10-23 12:00 | disposition home or self-care (01) ==
LOC: M OPP 09:21
PROVIDERS: ATTEND Internal Medicine Gastroenterology
DX: K63.5 Polyp of colon (principal); K64.8 Other hemorrhoids; M19.90 Unspecified osteoarthritis, unspecified site; M32.9 Systemic lupus erythematosus, unspecified; G43.909 Migraine, unspecified, not intractable, without status migrainosus; Z79.899 Other long term (current) drug therapy

== ENCOUNTER → 2023-03-11 | Outpatient (CLI) | payer OTHER ==
[~2023-03-11] MED LIST changes: -NS 1,000 ML IV ONE
[2023-03-11 17:53] LABS: BASO # 0.1 10^3/uL (0.0-0.2); BASO % 0.8 % (0.0-1.0); EOS # 0.1 10^3/uL (0.0-0.5); EOS % 1.4 % (0.0-3.0); HEMATOCRIT 37.9 % (36.0-47.0); HEMOGLOBIN 12.7 g/dl (12.0-15.5); LYMPH # 2.2 10^3/uL (1.5-5.0); LYMPH % 21.8 % (24.0-44.0); MEAN CORPUSCULAR HEMOGLOBIN 29.7 pg (27.0-33.0); MEAN CORPUSCULAR HGB CONC 33.5 g/dl (32.0-36.5); MEAN CORPUSCULAR VOLUME 88.8 fl (80.0-96.0); MONO # 0.6 10^3/uL (0.0-0.8); MONO % 6.1 % (2.0-8.0); NEUTROPHILS # 6.9 10^3/uL (1.5-8.5); NEUTROPHILS % 69.3 % (36.0-66.0); PLATELET COUNT, AUTOMATED 456 10^3/uL (150-450); RED BLOOD COUNT 4.27 10^6/uL (4.00-5.40); WHITE BLOOD COUNT 9.9 10^3/uL (4.0-10.0)
[2023-03-11 17:56] LABS: IRON (FE) 59 UG/DL (50-170); PERCENT SATURATION 19.9 % (13.2-45.0); TOTAL IRON BINDING CAPACITY 297 UG/DL (250-425)
[2023-03-11 17:58] LABS: FOLATE > 24.0 NG/ML (>5.4)
[2023-03-11 17:59] LABS: VITAMIN B12 LEVEL 736 PG/ML (211-911)
== END ==
LOC: M LAB 16:39
PROVIDERS: ATTEND Nurse Practitioner Adult Health
DX: D50.9 Iron deficiency anemia, unspecified (principal)

== ENCOUNTER → 2023-05-28 | Outpatient (CLI) | payer OTHER ==
[~2023-05-28] MED LIST changes: -ASPI-161 PO; +ASPI-615 PO
== END ==
LOC: M PLAIMG 06:56
PROVIDERS: ATTEND Nurse Practitioner Adult Health
DX: M25.521 Pain in right elbow (principal); M25.511 Pain in right shoulder; M75.41 Impingement syndrome of right shoulder; M75.31 Calcific tendinitis of right shoulder; M75.21 Bicipital tendinitis, right shoulder; M75.01 Adhesive capsulitis of right shoulder; M25.421 Effusion, right elbow

== ENCOUNTER → 2024-05-14 | Outpatient (CLI) | payer OTHER | LOC: M LAB 15:11 | PROVIDERS: ATTEND Physician Assistant | DX: Z36.89 Encounter for other specified antenatal screening (principal); Z3A.01 Less than 8 weeks gestation of pregnancy ==

== ENCOUNTER → 2024-05-16 | Outpatient (CLI) | payer OTHER | LOC: M LAB 13:05 | PROVIDERS: ATTEND Physician Assistant | DX: Z36.89 Encounter for other specified antenatal screening (principal); Z3A.01 Less than 8 weeks gestation of pregnancy ==

== ENCOUNTER → 2024-05-27 | Outpatient (CLI) | payer OTHER | LOC: M LAB 15:16 | PROVIDERS: ATTEND Family Medicine | DX: Z33.1 Pregnant state, incidental (principal) ==

== ENCOUNTER → 2024-06-05 | Outpatient (CLI) | payer OTHER | LOC: M WHC 06:36 | PROVIDERS: ATTEND Obstetrics & Gynecology | DX: Z34.81 Encounter for supervision of other normal pregnancy, first trimester (principal) ==

== ENCOUNTER → 2024-06-11 | Outpatient (CLI) | payer OTHER ==
[2024-06-11 13:22] LABS: HEMATOCRIT 38.3 % (36.0-47.0); HEMOGLOBIN 12.4 g/dl (12.0-15.5); MEAN CORPUSCULAR HEMOGLOBIN 31.3 pg (27.0-33.0); MEAN CORPUSCULAR HGB CONC 32.4 g/dl (32.0-36.5); MEAN CORPUSCULAR VOLUME 96.7 fl (80.0-96.0); PLATELET COUNT, AUTOMATED 292 10^3/uL (150-450); RED BLOOD COUNT 3.96 10^6/uL (4.00-5.40); WHITE BLOOD COUNT 8.6 10^3/uL (4.0-10.0)
[2024-06-11 13:41] LABS: ALBUMIN 3.5 G/DL (3.2-5.2); ALKALINE PHOSPHATASE 52 U/L (35-104); ALT/SGPT 18 U/L (7.0-40); AST/SGOT 9 U/L (<34); BILIRUBIN,TOTAL 0.2 MG/DL (0.3-1.2); BLOOD UREA NITROGEN 9 MG/DL (9-23); CALCIUM LEVEL 9.5 MG/DL (8.5-10.1); CARBON DIOXIDE LEVEL 27 MMOL/L (20-31); CHLORIDE LEVEL 103 MMOL/L (98-107); GLOMERULAR FILTRATION RATE > 90.0 (>60); GLUCOSE CHALLENGE TEST 1 HOUR 99 MG/DL (LESS THAN 140); GLUCOSE, FASTING 99 MG/DL (60-100); POTASSIUM SERUM 4.3 MMOL/L (3.5-5.1); SODIUM LEVEL 139 MMOL/L (136-145); TOTAL PROTEIN 6.5 G/DL (5.7-8.2)
[2024-06-11 14:00] LABS: HEMOGLOBIN A1c 4.8 % (4.0-6.0)
[2024-06-11 14:06] LABS: Trichomonas vaginalis (AMP) NOT DETECTED (NEGATIVE)
[2024-06-11 14:30] LABS: GC DNA AMPLIFICATION NEGATIVE (NEGATIVE)
[2024-06-11 15:41] LABS: CREATININE,RANDOM URINE 26.8 MG/DL
[2024-06-11 15:48] LABS: TOTAL PROTEIN,RANDOM URINE < 6.0 MG/DL (0.0-14.0)
[2024-06-11 16:15] LABS: HIV 1&2 SCREEN NEGATIVE (NEGATIVE)
[2024-06-11 16:24] LABS: HEPATITIS C VIRUS ABY INDEX 0.05 INDEX (<0.8)
== END ==
LOC: M PLALAB 09:03
PROVIDERS: ATTEND Obstetrics & Gynecology
DX: Z34.80 Encounter for supervision of other normal pregnancy, unspecified trimester (principal); Z86.32 Personal history of gestational diabetes

== ENCOUNTER → 2024-06-12 | Outpatient (CLI) | payer OTHER | LOC: M PLALAB 12:21 | PROVIDERS: ATTEND Obstetrics & Gynecology | DX: Z34.80 Encounter for supervision of other normal pregnancy, unspecified trimester (principal) ==

== ENCOUNTER → 2024-09-15 | Outpatient (CLI) | payer OTHER | LOC: M WHC 07:53 | PROVIDERS: ATTEND Nurse Practitioner Family | DX: Z34.82 Encounter for supervision of other normal pregnancy, second trimester (principal); Z3A.22 22 weeks gestation of pregnancy ==

== ENCOUNTER → 2024-10-13 | Outpatient (CLI) | payer OTHER ==
[2024-10-13 15:15] LABS: PLATELET COUNT, AUTOMATED 248 10^3/uL (150-450)
[2024-10-13 15:21] LABS: GLUCOSE CHALLENGE TEST 1 HOUR 140 MG/DL (LESS THAN 140)
[2024-10-13 16:24] LABS: HIV 1&2 SCREEN NEGATIVE (NEGATIVE)
[2024-10-13 16:27] LABS: Trichomonas vaginalis (AMP) NOT DETECTED (NEGATIVE)
[2024-10-13 16:32] LABS: HEPATITIS C VIRUS ABY INDEX < 0.02 INDEX (<0.8)
[2024-10-13 16:50] LABS: GC DNA AMPLIFICATION NEGATIVE (NEGATIVE)
== END ==
LOC: M PLALAB 08:15
PROVIDERS: ATTEND Advanced Practice Midwife
DX: O34.29 Maternal care due to uterine scar from other previous surgery (principal); Z3A.00 Weeks of gestation of pregnancy not specified

== ENCOUNTER → 2024-10-23 | Outpatient (CLI) | payer OTHER | LOC: M LAB 07:57 | PROVIDERS: ATTEND Advanced Practice Midwife | DX: O99.810 Abnormal glucose complicating pregnancy (principal) ==

== ENCOUNTER → 2024-11-25 | Outpatient (CLI) | payer OTHER | LOC: M WHC 07:03 | PROVIDERS: ATTEND Nurse Practitioner Family | DX: M32.9 Systemic lupus erythematosus, unspecified (principal) ==